=== PATIENT | female | born 1955 | race Hispanic/Latino ===

== ENCOUNTER 2018-10-03 18:01 | Inpatient (IN) | payer MEDICARE ==
[~2018-10-03] VITALS: Ht 154.9 cm; Wt 80.6 kg
[~2018-10-03 18:01] MED LIST changes: -ATIVAN0.5 MG PO; -EFFEXOR XR75 MG PO; -FOLIC ACID1 MG PO; -PYRIDIUM100 MG PO; -RESTORIL15 MG PO; -TYLENOL WITH C1 EACH PO
--- OUTSIDE RECORDS SUMMARY | 2018-10-03 23:38 | XMS REPORT | Clinical Summary ---
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 Name Role Phone Jared Winston MD PCP [...] Gastroesophageal reflux disease without esophagitis 05/03/2018 Refill [facility] Will Burkett MD Moderate episode of recurrent major depressive disorder (Primary Dx); ZANA (generalized anxiety disorder) 05/02/2018 Office Visit Psychiatry 05/02/2018 Kevin Owen III, MD Gastroesophageal reflux disease without esophagitis 03/03/2018 Refill [facility] Sukh Ramirez MD Espinosa, Giselle [...] Comments Vital Sign 105/62 06/14/2018 11:10 AM BIODIESEL PROCESSING TECHNICIAN Blood Pressure 89 06/14/2018 11:10 AM BIODIESEL PROCESSING TECHNICIAN Pulse 37 C (98.6 F) 06/14/2018 11:10 AM BIODIESEL PROCESSING TECHNICIAN Temperature 18 06/14/2018 11:10 AM BIODIESEL PROCESSING TECHNICIAN Respiratory Rate - - Oxygen Saturation - - Inhaled Oxygen Concentration 91.6 kg (202 lb) 06/14/2018 11:10 AM BIODIESEL PROCESSING TECHNICIAN Weight 152.4 cm (5') 06/14/2018 11:10 AM BIODIESEL PROCESSING TECHNICIAN Height 39.45 06/14/2018 11:10 AM BIODIESEL PROCESSING TECHNICIAN Body Mass Index Plan of Treatment Health [...] Preventative health care HORMONE (TSH) 9:18 AM BIODIESEL PROCESSING TECHNICIAN VIT D, 25-HYDROXY Routine 06/15/2018 Preventative health care 9:18 AM BIODIESEL PROCESSING TECHNICIAN VITAMIN B12 Routine 06/15/2018 Preventative health care 9:18 AM BIODIESEL PROCESSING TECHNICIAN Vitamin B12 deficiency FOLIC ACID Routine 06/15/2018 Preventative health care 9:18 AM BIODIESEL PROCESSING TECHNICIAN Vitamin B12 deficiency FERRITIN Routine 06/15/2018 Preventative health care 9:18 AM BIODIESEL PROCESSING TECHNICIAN Vitamin B12 deficiency IRON PROFILE Routine 06/15/2018 Preventative health care 9:18 AM BIODIESEL PROCESSING TECHNICIAN Vitamin B12 deficiency LIVER PROFILE Routine 06/15/2018 Preventative health care 9:18 AM BIODIESEL PROCESSING TECHNICIAN LIPID PROFILE Routine 06/15/2018 Preventative health care 9:18 AM BIODIESEL PROCESSING TECHNICIAN HEMOGLOBIN A1C Routine 06/15/2018 Preventative health care 9:18 AM BIODIESEL PROCESSING TECHNICIAN CBC/DIFF Routine 06/15/2018 Preventative health care 9:18 AM BIODIESEL PROCESSING TECHNICIAN Vitamin B12 deficiency BASIC METABOLIC PANEL Routine 06/15/2018 Preventative health care 9:18 AM BIODIESEL PROCESSING TECHNICIAN URINALYSIS Routine 02/22/2018 History of UTI 12:20 PM BIODIESEL PROCESSING TECHNICIAN URINE CULTURE Routine 02/22/2018 History of UTI 12:19 PM BIODIESEL PROCESSING TECHNICIAN after 10/02/2017 Results * VIT D, 25-HYDROXY (06/15/2018 9:18 AM BIODIESEL PROCESSING TECHNICIAN) Vit D, 27.1 (L) 30 - 100 ng/mL BT DIAGNOSTIC 25-Hydroxy Comment: IMMUNOLOGY Vitamin D deficiency has been defined by the [place] of Medicine and Endocrine Society guideline as a level of serum 25-OH Vitamin D less than 20 ng/mL. The Endocrine Society further defines Vitamin D insufficiency as a level between 21 and 29 ng/mL and sufficiency as a level between 30 and 100 ng/mL. Specimen Performing Organization Address City/State/Zipcode Phone Number [facility] BT DIAGNOSTIC IMMUNOLOGY * HEMOGLOBIN A1C (06/15/2018 9:18 AM BIODIESEL PROCESSING TECHNICIAN) Hemoglobin A1c 5.8 4.3 - 6.1 % BT DIAGNOSTIC IMMUNOLOGY Est Average 119.8 mg/dL BT DIAGNOSTIC Gluc IMMUNOLOGY Specimen Blood Performing Organization Address [facility] Phone Number [facility] BT DIAGNOSTIC IMMUNOLOGY * TSH (06/15/2018 9:18 AM BIODIESEL PROCESSING TECHNICIAN) TSH 2.84 0.57 - 3.74 uIU/mL BT MAIN-STATION 1 Specimen Blood Performing Organization Address [facility] Phone Number [facility] BT MAIN-STATION 1 * FOLIC ACID (06/15/2018 9:18 AM BIODIESEL PROCESSING TECHNICIAN) Folic Acid 7.6 5.9 - 24.8 ng/mL BT MAIN-STATION 1 Specimen Blood Performing Organization Address [facility] Phone Number [facility] BT MAIN-STATION 1 * FERRITIN (06/15/2018 9:18 AM BIODIESEL PROCESSING TECHNICIAN) Ferritin 50.70 11.0 - 306.8 ng/mL BT MAIN-STATION 1 Specimen Blood Performing Organization Address [facility] Phone Number [facility] BT MAIN-STATION 1 * VITAMIN B12 (06/15/2018 9:18 AM BIODIESEL PROCESSING TECHNICIAN) Vitamin B12 212 211 - 911 pg/mL BT MAIN-STATION 1 Specimen Blood Performing Organization Address [facility] Phone Number [facility] BT MAIN-STATION 1 * LIVER PROFILE (06/15/2018 9:18 AM BIODIESEL PROCESSING TECHNICIAN) Protein, Total, 6.3 6.0 - 8.3 g/dL [...] MAIN-STATION 1 Specimen Blood Performing Organization Address [facility] Phone Number [facility] BT MAIN-STATION 1 * LIPID PROFILE (06/15/2018 9:18 AM BIODIESEL PROCESSING TECHNICIAN) Cholesterol 174 mg/dL BT MAIN-STATION Comment: 1 REFERENCE RANGE: Desirable: <200 mg/dL Borderline: 200-240 mg/dL High Risk: >240 mg/dL Triglyceride 89 <150 mg/dL BT MAIN-STATION Comment: 1 REFERENCE RANGE: Normal: <150 mg/dL Borderline High: 150-199 mg/dL High: 200-499 mg/dL Very High: >ye=390 mg/dL HDL 70 mg/dL BT MAIN-STATION Comment: 1 Increased CHD risk: <40 mg/dL Decreased CHD risk: >60 mg/dL LDL 86 mg/dL BT MAIN-STATION Comment: 1 REFERENCE RANGE: Optimal: <100 mg/dL Near Optimal: 100-129 mg/dL Borderline High: 130-159 mg/dL High: 160-189 mg/dL Very High: >bg=377 mg/dL Specimen Blood Performing Organization Address [facility] Phone Number [facility] BT MAIN-STATION 1 * IRON PROFILE (06/15/2018 9:18 AM BIODIESEL PROCESSING TECHNICIAN) Iron 54 50 - 212 ug/dL BT MAIN-STATION 1 TIBC 440 250 - 450 ug/dL BT MAIN-STATION 1 % Iron Sat 12 % BT MAIN-STATION 1 Specimen Blood Performing Organization Address [facility] Phone Number [facility] * CBC/DIFF (06/15/2018 9:18 AM BIODIESEL PROCESSING TECHNICIAN) WBC 6.8 4.5 - 11.0 K/uL BT [...] (H) 0.24 - 0.36 K/uL BT MAIN-STATION eyak) 2 Eos (Absolute) 0.23 0.04 - 0.36 K/uL BT MAIN-STATION 2 Baso (Absolute) 0.04 0.01 - 0.08 K/uL BT MAIN-STATION 2 Immature Grans 0.04 (H) 0.00 - 0.03 K/uL BT MAIN-STATION (Abs) 2 Specimen Blood Performing Organization Address City/[facility]/Zipcode Phone Number [facility] BT MAIN-STATION 2 * BASIC METABOLIC PANEL (06/15/2018 9:18 AM BIODIESEL PROCESSING TECHNICIAN) [facility] CO2 27 21 - 31 mmol/L [...] Am 1 Specimen Blood Performing Organization Address [facility] Phone Number [facility] BT MAIN-STATION 1 * UA CHEMISTRIES (02/22/2018 12:20 PM BIODIESEL PROCESSING TECHNICIAN) Color Yellow BT MAIN-STATION 1 Clarity Clear BT MAIN-STATION 1 Specific 1.025 1.001 - 1.035 BT MAIN-STATION Winter 1 pH 6.0 5 - 8 BT [...] MAIN-STATION 1 Specimen Urine Performing Organization Address City/[facility] Phone Number [facility] BT MAIN-STATION 1 * URINE CULTURE (02/22/2018 12:19 PM BIODIESEL PROCESSING TECHNICIAN) Spec Catheterized urine BT MICROBIOLOGY Description Order Comments None BT MICROBIOLOGY Culture No growth 2 days BT MICROBIOLOGY Report Status Final 02/25/2018 BT MICROBIOLOGY Specimen Urine catheter - Straight catheter Performing Organization Address [facility] Phone Number [facility] BT MICROBIOLOGY after 10/02/2017 Insurance Type Payer Benefit Subscriber ID Effective Phone Address Plan / Dates Group MEDICARE MEDICARE xxxxxxxxxxx 2016- [phone] [address] Present [id number] [place] [address] Advance Directives Date Inactivated Comments Code Status Date Activated 10/19/2012 7:22 PM Full Code 10/18/2012 4:58 AM
[2018-10-04] VITALS (8 sets, daily range): BP systolic 94–129; BP diastolic 50–61
--- NOTE | 2018-10-04 | NUR ---
patient is a new admit that arrived via stretcher. patient needs assistance walking to the bed. patient has swelling to the lower extremities. patient is laying in the bed. bed is in the lowest position and call gleason is within reach.
[2018-10-04] MEDS ORDERED: MORPHINE SULFATE 2 MG/ML SYR 1ML IV PRN (00:30)
[2018-10-04] MEDS ORDERED: SODIUM CHLORIDE FLUSH 10 ML SYR INJ PRN (00:30)
[2018-10-04] MEDS ORDERED: CEFTRIAXONE SOD 1 GM/NS 50 ML 50 ML IV SCH (01:00)
[2018-10-04] MEDS ORDERED: ONDANSETRON HCL INJ 2MG/ML 2ML 2 MG/ML VIAL IV PRN (01:45)
[2018-10-04] MEDS: CIPROFLOXACIN 200 MG/D5W 100ML 100 ML IV SCH ×2 (01:45→12:45)
[2018-10-04] MEDS ORDERED: MORPHINE SULFATE INJ 4 MG/ML INJ 1ML IV PRN (01:53)
[2018-10-04] MEDS ORDERED: SODIUM CHLORIDE 0.9% 250ML 250 ML ONE (03:15)
[2018-10-04 05:27] LABS: BASOPHILS % 0.7 % (0.0-1.0); EOSINOPHILS # (AUTO) 0.1 (0.0-0.4); EOSINOPHILS % 2.4 % (0.0-6.0); HEMATOCRIT 33.4 % (34.2-44.1); HEMOGLOBIN 10.6 g/dL (12.0-16.0); LYMPHOCYTES # (AUTO) 2.5 (1.0-3.2); LYMPHOCYTES % 43.7 % (18.0-39.1); MEAN CORPUSCULAR HEMOGLOBIN 29.3 pg (28-32); MEAN CORPUSCULAR HGB CONC 31.7 g/dL (31-35); MEAN CORPUSCULAR VOLUME 92.3 fL (81-99); MONOCYTES # (AUTO) 0.7 (0.2-0.8); MONOCYTES % 12.2 % (4.4-11.3); NEUTROPHILS # (AUTO) 2.3 (2.1-6.9); NEUTROPHILS % 40.7 % (38.7-80.0); PLATELET COUNT 245 x10e3/uL (140-360); RED BLOOD COUNT 3.62 x10e6/uL (3.6-5.1); RED CELL DISTRIBUTION WIDTH 12.5 % (11.7-14.4)
[2018-10-04 05:48] LABS: ALANINE AMINOTRANSFERASE 28 IU/L (0-55); ALBUMIN 3.3 g/dL (3.5-5.0); ALBUMIN/GLOBULIN RATIO 1.2 (0.8-2.0); ALKALINE PHOSPHATASE 76 IU/L (40-150); ANION GAP 10.5 mmol/L (8-16); BLOOD UREA NITROGEN 20 mg/dL (7-26); BUN/CREATININE RATIO 30 (6-25); CALCIUM 8.7 mg/dL (8.4-10.2); CARBON DIOXIDE 24 mmol/L (22-29); CHLORIDE 109 mmol/L (98-107); CREATININE, SERUM 0.67 mg/dL (0.57-1.11); EST GLOMERULAR FILTRATION RATE > 60 ML/MIN (60-); GLUCOSE 89 mg/dL (74-118); POTASSIUM 3.5 mmol/L (3.5-5.1); SODIUM 140 mmol/L (136-145)
--- NOTE | 2018-10-04 07:06 | NUR ---
report given to morning nurse. patient is resting comfortably in bed. bed is in lowest position and call gleason is within reach.
[2018-10-04] MEDS: FAMOTIDINE 20 MG TAB PO SCH ×2 (09:50→16:29)
[2018-10-04] MEDS ORDERED: ACETAMINOPHEN/CODEINE 300MG - 30MG TAB PO PRN (17:00)
[2018-10-04] MEDS ORDERED: HYDROCODONE/APAP 10MG-325MG TAB PO PRN (17:00)
[2018-10-04] MEDS: PHENAZOPYRIDINE HCL 100 MG TAB PO SCH (17:15)
[2018-10-04] MEDS ORDERED: POTASSIUM CHLORIDE 20 MEQ TAB CR PO NR (18:00)
[2018-10-04] MEDS: KCL 20MEQ/.9 SOD CHL 1,000 ML IV SCH (18:15)
--- NOTE | 2018-10-04 18:24 | NUR ---
tea and spice supervisor notified of STAT venous doppler
[2018-10-04] MEDS ORDERED: POLYETHYLENE GLYCOL 3350 17 GM PACK PO PRN (18:30)
[2018-10-04] MEDS ORDERED: HYDRALAZINE HCL 20 MG/ML VIAL IV PRN (18:30)
--- NOTE | 2018-10-04 19:20 | NUR ---
RECEIVED PATIENT. PATIENT IS AAOX3. RESP EVEN AND UNLABORED. NO ACUTE DISTRESS NOTED. FAMILY AT BED SIDE. CALL LIGHT WITHIN REACH. INSTRUCT TO CALL FOR ASSISTANCE. BED LOW/LOCKED. CONTINUE TO MONITOR CLOSELY
--- NOTE | 2018-10-04 19:50 | NUR ---
VENTILATED RIB FITTER NOTIFIED PATIENT TO NEGATIVE FOR [place]. NOTIFIED WIRE DRAWING MACHINE OPERATOR ADITYA
--- NOTE | 2018-10-04 20:05 | NUR ---
PATIENT IS OFF UNIT FOR XRAY
--- NOTE | 2018-10-04 20:20 | NUR ---
PATIENT IS BACK TO ROOM
[2018-10-04] MEDS: TEMAZEPAM 15 MG CAP PO PRN (20:30)
--- NOTE | 2018-10-04 20:31 | Diagnostic Imaging Report ---
EXAMINATION: CHEST 2 VIEWS INDICATION: ^persistent cough, phlegm, SOB, Asthma, HERMINIA ^Y COMPARISON: None FINDINGS: PA and lateral views TUBES and LINES: None. LUNGS: Lungs are well inflated. No evidence of air trapping. There is no evidence of pneumonia or pulmonary edema. PLEURA: No pleural effusion or pneumothorax. HEART AND MEDIASTINUM: The cardiomediastinal silhouette is unremarkable. BONES AND SOFT TISSUES: Degenerative changes of the spine and shoulders. Sclerotic lesion in the right scapula measures 4 mm and may represent a bone island. Soft tissues are unremarkable. UPPER ABDOMEN: No free air under the diaphragm. IMPRESSION: No acute thoracic abnormality. Signed by: Dr. Quita Brown MD on 10/04/2018 8:28 PM
[2018-10-05] VITALS (10 sets, daily range): BP systolic 103–151; BP diastolic 53–80
[2018-10-05] MEDS: CIPROFLOXACIN 200 MG/D5W 100ML 100 ML IV SCH ×2 (02:03→14:18)
[2018-10-05] MEDS: KCL 20MEQ/.9 SOD CHL 1,000 ML IV SCH ×2 (04:17→14:18)
[2018-10-05 05:35] LABS: BASOPHILS % 0.4 % (0.0-1.0); EOSINOPHILS # (AUTO) 0.2 (0.0-0.4); EOSINOPHILS % 3.9 % (0.0-6.0); HEMATOCRIT 33.5 % (34.2-44.1); HEMOGLOBIN 10.7 g/dL (12.0-16.0); LYMPHOCYTES # (AUTO) 2.4 (1.0-3.2); LYMPHOCYTES % 42.1 % (18.0-39.1); MEAN CORPUSCULAR HEMOGLOBIN 29.4 pg (28-32); MEAN CORPUSCULAR HGB CONC 31.9 g/dL (31-35); MONOCYTES # (AUTO) 0.7 (0.2-0.8); MONOCYTES % 12.2 % (4.4-11.3); NEUTROPHILS # (AUTO) 2.3 (2.1-6.9); PLATELET COUNT 247 x10e3/uL (140-360); RED BLOOD COUNT 3.64 x10e6/uL (3.6-5.1); RED CELL DISTRIBUTION WIDTH 12.4 % (11.7-14.4)
[2018-10-05 05:48] LABS: ANION GAP 7.9 mmol/L (8-16); BLOOD UREA NITROGEN 16 mg/dL (7-26); BUN/CREATININE RATIO 22 (6-25); CALCIUM 9.1 mg/dL (8.4-10.2); CARBON DIOXIDE 25 mmol/L (22-29); CHLORIDE 110 mmol/L (98-107); CHOLESTEROL 144 MD/DL (0-199); CREATININE, SERUM 0.72 mg/dL (0.57-1.11); EST GLOMERULAR FILTRATION RATE > 60 ML/MIN (60-); GLUCOSE 90 mg/dL (74-118); HDL CHOLESTEROL 48 MG/DL (40-60); LDL CHOLESTEROL 69 MG/DL (60-130); MAGNESIUM 2.1 MG/DL (1.3-2.1); PHOSPHORUS 3.6 MG/DL (2.3-4.7); POTASSIUM 3.9 mmol/L (3.5-5.1); SODIUM 139 mmol/L (136-145); TRIGLYCERIDES 133 MG/DL (0-149)
[2018-10-05 06:09] LABS: THYROID STIMULATING HORMONE 0.604 uIU/mL (0.350-4.940)
--- NOTE | 2018-10-05 07:00 | NUR ---
BEDSIDE SHIFT REPORT RECEIVED FROM DEV MILLIGAN. PT DENIES NEEDS AT THIS TIME.
[2018-10-05] MEDS: MULTIVITAMINS/MINERALS TAB PO SCH (08:15)
[2018-10-05] MEDS: PHENAZOPYRIDINE HCL 100 MG TAB PO SCH ×3 (08:15→18:11)
[2018-10-05] MEDS: OXYBUTYNIN CHLORIDE 5 MG TAB PO SCH (08:15)
[2018-10-05] MEDS: CELECOXIB 100 MG CAP PO SCH (08:15)
[2018-10-05] MEDS: FAMOTIDINE 20 MG TAB PO SCH ×2 (08:15→16:48)
[2018-10-05] MEDS: DOCUSATE SODIUM 100 MG CAP PO SCH ×2 (08:15→16:48)
[2018-10-05] MEDS: PREGABALIN 75 MG CAP PO SCH (08:15)
[2018-10-05] MEDS: BUPROPION HCL 150 MG TABCR PO SCH (08:15)
--- NOTE | 2018-10-05 12:35 | NUR ---
Nutrition Intervention Note RD Recommendation(s) for Physician: -Continue current diet as ordered; diet texture per FINE DINING SERVER -The patient meets criteria for MODERATE protein-calorie malnutrition. Plan of Care: RD following, monitoring for tolerance and adequacy Nutrition reason for involvement: MD Consult decreased appetite with weight loss RD Assessment 10/05 - Chart reviewed. 63yo F, who was admitted for pyelonephritis. CXR was normal. HbA1c was normal at 5.5%. Visited pt in the room. Pt reported poor appetite with nausea and vomiting for over a month. Pt stated I just cant keep anything down. PCT recorded 100% meal intake since admission. Pt reported of 30lbs weight loss in a month. Today, pt still complains of nausea but no vomiting episode. Currently on regular diet. FINE DINING SERVER recommended MBS for further evaluation as pt coughing and clearing throat after thin liquids and after cracker trials. Discussed menu options and obtained food preferences. Pt is not interested in any oral nutrition supplements at this time. Awaiting result from MBS. Will continue to monitor and follow. Principal Problems/Diagnoses: Pyelonephritis PMH: anxiety, depression, GERD, vertigo GI: abdomen soft, round, flatus present, LBM 10/04 Skin: No pressure wound noted Labs: (10/05/2018) folate 6.0 L Meds: MVi w/ minerals, Colace, Pepcid, KCl Ht: 61in Wt: 178lb BMI: 33.6kg.m2 IBW: 105lb Malnutrition Evaluation (10/05) The patient meets criteria for MODERATE protein-calorie malnutrition. Energy intake: <75% of estimated energy requirements for >1 month Weight loss: >5% in 1 month (Acute) Fat loss: None Muscle loss: None Supporting Evidence: Fluid accumulation: none Functional Status: no changes Nutrition Prescription (Diet Order): regular diet Estimated Nutritional Needs: Calories: 1056 1200kcal(22-25kcal/kg/d) Weight used: IBW Protein: 72 120g (1.5-2.5g/kg/d) Weight used: IBW Diet Adequacy: Meeting calorie needs, Meeting protein needs, Meeting fluid needs Diet Education Needs Assessment: Diet education not indicated; patient on regular diet. Nutrition Care Level: mod Nutrition Diagnosis: Moderate malnutrition related to inadequate oral intake as evidenced by <75% of estimated energy requirements for >1 month and >5% weigh loss in 1 month (Acute). Goal: Patient will meet 75-100% of estimated needs by follow up Progress: Goal met Interventions: General healthful diet, Recommended Modifications, Skill Development, Collaboration with other providers Monitoring/Evaluation: Total energy intake, Total protein intake, Modified diet, Weight change Signed: Su Mazariegos MS, RD, LD
[2018-10-05] MEDS ORDERED: ONDANSETRON HCL 4 MG ORAL DISINTEGRATING TAB PO PRN (16:45)
[2018-10-05 17:14] LABS: BILIRUBIN,URINE NEGATIVE (NEGATIVE); CLARITY,URINE CLEAR (CLEAR); COLOR,URINE ORANGE (YELLOW); KETONES,URINE NEGATIVE (NEGATIVE); LEUKOCYTE ESTERASE ,URINE NEGATIVE (NEGATIVE); NITRITE,URINE POSITIVE (NEGATIVE); PROTEIN,URINE DIPSTICK TRACE (NEGATIVE); URINE UROBILINOGEN 2 mg/dL (0.2 - 1)
[2018-10-05 17:22] LABS: EPITHELIAL CELLS,URINE RARE /LPF
[2018-10-06] VITALS (9 sets, daily range): BP systolic 94–145; BP diastolic 51–91
[2018-10-06] MEDS: TEMAZEPAM 15 MG CAP PO PRN ×2 (00:15→22:34)
[2018-10-06] MEDS: KCL 20MEQ/.9 SOD CHL 1,000 ML IV SCH ×3 (00:45→20:36)
[2018-10-06] MEDS: CIPROFLOXACIN 200 MG/D5W 100ML 100 ML IV SCH ×2 (01:50→12:53)
[2018-10-06 06:07] LABS: BASOPHILS % 0.5 % (0.0-1.0); EOSINOPHILS # (AUTO) 0.2 (0.0-0.4); EOSINOPHILS % 3.7 % (0.0-6.0); HEMATOCRIT 34.8 % (34.2-44.1); HEMOGLOBIN 11.3 g/dL (12.0-16.0); LYMPHOCYTES # (AUTO) 2.6 (1.0-3.2); LYMPHOCYTES % 42.9 % (18.0-39.1); MEAN CORPUSCULAR HEMOGLOBIN 29.8 pg (28-32); MEAN CORPUSCULAR HGB CONC 32.5 g/dL (31-35); MEAN CORPUSCULAR VOLUME 91.8 fL (81-99); MONOCYTES # (AUTO) 0.6 (0.2-0.8); MONOCYTES % 10.3 % (4.4-11.3); NEUTROPHILS # (AUTO) 2.5 (2.1-6.9); NEUTROPHILS % 42.3 % (38.7-80.0); PLATELET COUNT 258 x10e3/uL (140-360); RED BLOOD COUNT 3.79 x10e6/uL (3.6-5.1); RED CELL DISTRIBUTION WIDTH 12.4 % (11.7-14.4)
[2018-10-06 06:33] LABS: ANION GAP 10.8 mmol/L (8-16); BLOOD UREA NITROGEN 15 mg/dL (7-26); BUN/CREATININE RATIO 23 (6-25); CALCIUM 9.2 mg/dL (8.4-10.2); CARBON DIOXIDE 23 mmol/L (22-29); CHLORIDE 112 mmol/L (98-107); CREATININE, SERUM 0.64 mg/dL (0.57-1.11); EST GLOMERULAR FILTRATION RATE > 60 ML/MIN (60-); GLUCOSE 79 mg/dL (74-118); MAGNESIUM 2.1 MG/DL (1.3-2.1); POTASSIUM 3.8 mmol/L (3.5-5.1); SODIUM 142 mmol/L (136-145)
--- NOTE | 2018-10-06 06:50 | NUR ---
PAGED DR WOOTEN FOR CONSULT.
--- NOTE | 2018-10-06 07:00 | NUR ---
BEDSIDE SHIFT REPORT RECEIVED FROM CONFERENCE SERVICES COORDINATOR RN. PT DENIES NEEDS AT THIS TIME.
--- NOTE | 2018-10-06 07:59 | Diagnostic Imaging Report ---
EXAM: Modified barium swallow with Speech Pathologist INDICATION: ^RO ASPIRATION ^20181005 ^1230 COMPARISON: None available. RADIATION DOSE: Fluoroscopy Time: 0.8 min Dose (Kerma) Area Product: 0.38 Gycm2 Air Kerma (AK) value has been reviewed. It is below the limits set by the Radiation Protocol Committee (RPC) committee. FINDINGS: See impression IMPRESSION: No evidence of penetration or aspiration. Please see speech pathology report for detailed description and recommendations. Signed by: Dr. Hamilton Ortiz M.D. on 10/06/2018 7:55 AM
[2018-10-06] MEDS: PREGABALIN 75 MG CAP PO SCH ×2 (09:00→09:28)
[2018-10-06] MEDS: FAMOTIDINE 20 MG TAB PO SCH ×2 (09:28→17:06)
[2018-10-06] MEDS: CELECOXIB 100 MG CAP PO SCH (09:28)
[2018-10-06] MEDS: PHENAZOPYRIDINE HCL 100 MG TAB PO SCH ×3 (09:28→17:06)
[2018-10-06] MEDS: OXYBUTYNIN CHLORIDE 5 MG TAB PO SCH (09:28)
[2018-10-06] MEDS: FOLIC ACID 1 MG TAB PO SCH (09:28)
[2018-10-06] MEDS: MULTIVITAMINS/MINERALS TAB PO SCH (09:28)
[2018-10-06] MEDS: BUPROPION HCL 150 MG TABCR PO SCH (09:28)
[2018-10-06] MEDS: DOCUSATE SODIUM 100 MG CAP PO SCH ×2 (09:28→17:06)
[2018-10-06] MEDS ORDERED: IOPAMIDOL 370 MG/ML 200 ML INFUS..BTL INJ ONE (10:13)
[2018-10-06] MEDS ORDERED: SODIUM CHLORIDE 0.9% 50ML 50 ML ONE (10:13)
--- NOTE | 2018-10-06 12:28 | NUR ---
Spoke to Natalia with PT. She stated she spoke with PT who worked with pt today. Pt walked 260 ft with supervision today. PT does not think pt will need therapy after discharge. New recommendation is home. Will benefit with rolling walker.
[2018-10-06] MEDS ORDERED: LORAZEPAM 0.5 MG TAB PO PRN (14:30)
[2018-10-06] MEDS: VENLAFAXINE HCL 75 MG CAPCR PO SCH (14:55)
--- NOTE | 2018-10-06 22:09 | Consultation ---
DATE OF CONSULTATION: 10/06/2018 Psychiatric Consultation REASON FOR CONSULTATION: To evaluate the patient's mood. HISTORY OF PRESENT ILLNESS: The patient is a 63-year-old female, admitted to the hospital for pyelonephritis. Psychiatric consultation is called to evaluate the patient's mood. Upon evaluation today, the patient is found to be in the room with her sister. She is alert, awake, and oriented to situation. She agrees for the family members to be present in the room. The patient states that she has been feeling tired lately. She also admits to feeling depressed, but unable to verbalize or specify the reason for her mood. She also admits feeling anxious. She admits to feeling hopeless and helpless. She denies any hallucination or suicidal ideation. She reports feeling poor sleep and poor appetite, but claims her appetite is increasing while she is here. She claims that she has been on many psych medications in the past with some poor response. She reported that she had been introduced to the thought of getting TMS, but she declines at this time. PAST PSYCHIATRIC HISTORY: The patient reported history of depression for many years, but she does not know when. She denies past suicidal attempts. She denies alcohol or drug use. FAMILY HISTORY: Denies. SOCIAL HISTORY: The patient states she lives alone. MENTAL STATUS EXAM: The patient is an elderly female. She is alert, awake, and oriented to situation. However, she states she is feeling lethargic and weak. She denies any suicidal or homicidal ideation at this time. Her mood is depressed with congruent affect. Insight and judgment are fair. Thought process is concrete. No delusion or paranoia elicited. Denies any hallucination. CURRENT MEDICATIONS: 1. Pyridium. 2. Ciprofloxacin. 3. Folic acid. 4. Multivitamin. 5. Docusate sodium. 6. Oxybutynin. 7. Celebrex. 8. Famotidine. 9. Temazepam 30 mg p.o. at bedtime p.r.n. 10. [place]. 11. Pregabalin. 12. Potassium. 13. Ondansetron. 14. Hydralazine. 15. MiraLax. 16. Acetaminophen. 17. Sodium chloride. 18. Wellbutrin XL 100 mg p.o. daily. CURRENT LABORATORY DATA: WBC 6.01, RBC 3.79, hemoglobin 11.3, hematocrit 34.8, platelets 258. Sodium 142, potassium 3.8, chloride 112, CO2 of 23, BUN 15, creatinine 0.64. ASSESSMENT: Major depressive disorder, recurrent, moderate. PLAN: 1. Continue with temazepam 30 mg p.o. at bedtime p.r.n. 2. Discontinue Wellbutrin to minimize medication. 3. Add Effexor XR 75 mg p.o. daily. 4. Supportive therapy. 5. Monitor for mood. 6. Ativan 0.5 mg p.o. q.6 hours p.r.n. for anxiety. Thank you for this consultation. Dictated by Mahogany Whitlock PA-C Len Madsen MD QTV/MODL /[id number]
[2018-10-07] MEDS: CIPROFLOXACIN 200 MG/D5W 100ML 100 ML IV SCH ×2 (01:01→13:23)
[2018-10-07 04:53] VITALS: BP 104/56
[2018-10-07] MEDS: KCL 20MEQ/.9 SOD CHL 1,000 ML IV SCH (05:04)
[2018-10-07 05:21] LABS: BASOPHILS % 0.5 % (0.0-1.0); EOSINOPHILS # (AUTO) 0.2 (0.0-0.4); EOSINOPHILS % 3.4 % (0.0-6.0); HEMATOCRIT 36.4 % (34.2-44.1); HEMOGLOBIN 11.6 g/dL (12.0-16.0); LYMPHOCYTES # (AUTO) 2.5 (1.0-3.2); LYMPHOCYTES % 40.6 % (18.0-39.1); MEAN CORPUSCULAR HEMOGLOBIN 29.2 pg (28-32); MEAN CORPUSCULAR HGB CONC 31.9 g/dL (31-35); MEAN CORPUSCULAR VOLUME 91.7 fL (81-99); MONOCYTES # (AUTO) 0.6 (0.2-0.8); MONOCYTES % 9.1 % (4.4-11.3); NEUTROPHILS # (AUTO) 2.9 (2.1-6.9); NEUTROPHILS % 45.9 % (38.7-80.0); PLATELET COUNT 280 x10e3/uL (140-360); RED BLOOD COUNT 3.97 x10e6/uL (3.6-5.1); RED CELL DISTRIBUTION WIDTH 12.1 % (11.7-14.4)
[2018-10-07 05:28] LABS: ANION GAP 12.8 mmol/L (8-16); BLOOD UREA NITROGEN 17 mg/dL (7-26); BUN/CREATININE RATIO 24 (6-25); CALCIUM 9.7 mg/dL (8.4-10.2); CARBON DIOXIDE 21 mmol/L (22-29); CHLORIDE 109 mmol/L (98-107); EST GLOMERULAR FILTRATION RATE > 60 ML/MIN (60-); GLUCOSE 81 mg/dL (74-118); MAGNESIUM 2.1 MG/DL (1.3-2.1); POTASSIUM 3.8 mmol/L (3.5-5.1); SODIUM 139 mmol/L (136-145)
[2018-10-07] MEDS ORDERED: FOLIC ACID1 MG PO (06:22)
[2018-10-07] MEDS ORDERED: PYRIDIUM100 MG PO (06:22)
[2018-10-07] MEDS ORDERED: TYLENOL WITH C1 EACH PO (06:28)
[2018-10-07] MEDS ORDERED: EFFEXOR XR75 MG PO (06:32)
[2018-10-07] MEDS ORDERED: RESTORIL15 MG PO (06:32)
[2018-10-07] MEDS ORDERED: ATIVAN0.5 MG PO (06:32)
--- NOTE | 2018-10-07 08:23 | NUR ---
Spoke with pt at bedside regarding rolling walker. Pt states she wants to check with her insurance company prior to deciding on whether or not she wants a walker from the hospital. Pt states she was just on the phone with them but will call them back now and let CM know what she decides. IMM letter was discussed and pt was reminded of her Medicare Rights. Pt states she is ready to go home. Signed letter placed in chart. Copy to pt.
[2018-10-07] MEDS: OXYBUTYNIN CHLORIDE 5 MG TAB PO SCH (08:33)
[2018-10-07] MEDS: DOCUSATE SODIUM 100 MG CAP PO SCH (08:33)
[2018-10-07] MEDS: FAMOTIDINE 20 MG TAB PO SCH (08:33)
[2018-10-07] MEDS: PHENAZOPYRIDINE HCL 100 MG TAB PO SCH ×2 (08:33→13:06)
[2018-10-07] MEDS: MULTIVITAMINS/MINERALS TAB PO SCH (08:33)
[2018-10-07] MEDS: CELECOXIB 100 MG CAP PO SCH (08:33)
[2018-10-07] MEDS: PREGABALIN 75 MG CAP PO SCH (08:34)
[2018-10-07] MEDS: VENLAFAXINE HCL 75 MG CAPCR PO SCH (08:34)
[2018-10-07] MEDS: FOLIC ACID 1 MG TAB PO SCH (08:34)
[2018-10-07 08:37] VITALS: BP 128/72
[2018-10-07 09:00] VITALS: BP 128/72
--- NOTE | 2018-10-07 09:15 | NUR ---
Received callback from pt. She stated she spoke with her insurance and was informed she would be responsible for 20% of cost of RW. Pt states that she will have her daughter get one for her. CM discussed need for walker for safety purposes due to recent falls at home. Pt continues to declines RW from hospital at this time.
[2018-10-07 12:09] VITALS: BP 105/59
--- NOTE | 2018-10-07 12:19 | NUR ---
Pt changed her mind regarding rolling walker. Rolling walker was provided to pt. [facility] form turned into PACU.
--- NOTE | 2018-10-07 15:07 | NUR ---
patient discharged home, met daughter in room. given discharge instructions to patient and daughter. Verbalized understanding of d/c instructions.
--- NOTE | 2018-10-07 16:59 | Progress Note ---
DATE: 10/07/2018 SUBJECTIVE: The patient was evaluated, no events noted. The patient in the room with her daughter. She is alert, awake, and oriented to situation. She states that she is feeling fair, less depressed, less anxious. She denies any problems with sleep or appetite. She denies any hallucination. She denies any suicidal ideation. She denies any side effects to medications. ASSESSMENT: Major depressive disorder, recurrent, moderate. PLAN: 1. Continue temazepam p.r.n. 2. Continue Effexor. 3. Continue p.r.n. Ativan. 4. Monitor for mood. 5. Supportive therapy. Dictated by Mahogany Whitlock PA-C Len Madsen MD QTV/MODL /[id number]
--- NOTE | 2018-10-08 03:56 | Discharge Summary ---
ADMISSION DIAGNOSES: Klebsiella pneumoniae urinary tract infection with pyelonephritis, inadequate oral intake with unintentional weight loss of 21 pounds, protein-calorie malnutrition, dysphagia, headache, hypokalemia, persistent cough with asthma and obstructive sleep apnea, anxiety, depression, insomnia, gastroesophageal reflux disease. DISCHARGE DIAGNOSES: Klebsiella pneumoniae urinary tract infection with pyelonephritis, inadequate oral intake with unintentional weight loss of 21 pounds, protein-calorie malnutrition, dysphagia, headache, hypokalemia, persistent cough with asthma and obstructive sleep apnea, anxiety, depression, insomnia, gastroesophageal reflux disease. 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 FAMILY HISTORY: The patient's father has diabetes. PAST SURGICAL HISTORY: Umbilical hernia repair, appendectomy, hysterectomy. HOSPITAL COURSE: A 63-year-old female, states about 1-1/2 months ago, she had difficulty keeping food down because she got nauseous when she was eating and had abdominal pain. On September 17, her legs began to twitch and she had difficulty walking. About 3 weeks ago, she began having right flank pain, but she did not go to the primary care because she did not have the money. She denies dysuria, but has frequency and urgency. On September 26, she finally went to Dr. Gorman's office and was prescribed Cipro, which she took for seven days, but with no relief. On admission, chest x-ray was negative. The patient had a modified barium swallow that was negative for aspiration. The urine culture came back negative. The patient continued to receive Cipro in the hospital. The patient also said she was having problems with her family, so Psych was consulted. Psych ordered to discontinue the Wellbutrin and add Effexor as well as Ativan. I ordered a CT of the abdomen and pelvis, but due to the [facility] [place], the patient could not have a CAT scan. Since the urine culture is negative and the patient is feeling better, she will be discharged home with prescriptions for Tylenol No. 3, folic acid, lorazepam, Pyridium, Restoril, and Effexor. She will follow up with primary care in 1 to 2 weeks. The patient understands discharge instructions and agrees to plan. Physical Therapy assessed her and says it is safe for her to discharge home with a rolling walker. She was given a rolling walker before discharge. Dictated by Yolanda Wilcox, JET MAN MD MIKO Estrella/BLAS /[id number]
== END 2018-10-07 15:03 | disposition home or self-care (01) | DRG 689 ==
LOC: MED/SURG2 23:34
PROVIDERS: ADMIT Internal Medicine; ATTEND Internal Medicine
DX: N10 Acute pyelonephritis (principal); E43 Unspecified severe protein-calorie malnutrition; F33.1 Major depressive disorder, recurrent, moderate; E44.0 Moderate protein-calorie malnutrition; B96.1 Klebsiella pneumoniae [K. pneumoniae] as the cause of diseases classified elsewhere; E86.0 Dehydration; E87.6 Hypokalemia; K21.9 Gastro-esophageal reflux disease without esophagitis; E11.9 Type 2 diabetes mellitus without complications; M50.10 Cervical disc disorder with radiculopathy, unspecified cervical region; R13.10 Dysphagia, unspecified; G89.4 Chronic pain syndrome; G47.33 Obstructive sleep apnea (adult) (pediatric); E78.1 Pure hyperglyceridemia; G47.00 Insomnia, unspecified; Z68.33 Body mass index [BMI] 33.0-33.9, adult; R51 Headache; J45.909 Unspecified asthma, uncomplicated; F41.8 Other specified anxiety disorders; Z79.4 Long term (current) use of insulin; Z88.8 Allergy status to other drugs, medicaments and biological substances; Z91.81 History of falling; I83.811 Varicose veins of right lower extremity with pain; E53.8 Deficiency of other specified B group vitamins; E66.9 Obesity, unspecified
CPT/HCPCS: 36415; 71046; 74230; 80048; 80053; 80061; 81001; 82746; 83036; 83605; 83735; 83880; 84100; 84443; 85025; 87086; 93970; 97139; J2270; J2405; J7050; Q9967

== ENCOUNTER → 2018-10-03 | Emergency (ER) | payer MEDICARE ==
[~2018-10-03] MED LIST: ATIVAN0.5 MG PO; BACLOFEN10 MG PO; BUPROPION HCL100 MG PO; CELEBREX100 MG PO; EFFEXOR XR75 MG PO; FENOFIBRATE145 MG; FOLIC ACID1 MG PO; LYRICA50 MG; MYRBETRIQ50 MG; OMEPRAZOLE40 MG; OXYBUTYNIN CHLOR5 MG PO; PYRIDIUM100 MG PO; RESTORIL15 MG PO; TYLENOL WITH C1 EACH PO
--- OUTSIDE RECORDS SUMMARY | 2018-10-03 22:57 | XMS REPORT | Continuity of Care Document ---
Author Author [facility] Interface Address Unknown Phone Unavailable Problems Problem Status Onset Date Classification Date Reported Comments Source ESOPHAGEAL MOTILITY Active 06/01/2018 [facility] R10.13=EPIGASTRIC PAIN Active 07/23/2015 [facility] M46.96 - UNSPECIFIED INFLAMMATORY SPOND Active 02/13/2015 [facility] [place] Anxiety Resolved Problem 09/17/2018 [facility] [place] Arthritis Resolved Problem 09/17/2018 [facility] [place] Dysphasia Active Problem 09/17/2018 [facility] [place] GERD (<span ID="[id number]">Confirmed</span>) Resolved Problem 09/17/2018 [facility] [place] GERD - Gastro-esophageal reflux disease Active Problem 09/17/2018 [facility] [place] Elevated triglycerides with high cholesterol Resolved Problem 09/17/2018 [facility] [place] Urinary tract infection, recurrent Resolved Problem 09/17/2018 [facility] [place] LUMBAR DDD Active [facility] [place] LUMBAR Active [facility] [place] CHRONIC PAIN SYNDROME Active [facility] [place] DYSPHAGIA, UNSPECIFIED Active [facility] Medications Medication Details Route Status Patient Instructions Ordering Provider Order Date Source celecoxib 200 MG Oral Capsule [Celebrex] 200 mg=1 cap, PO, Daily, # 30 cap, 0 Refill(s) Active 06/16/2018 [facility] buPROPion 300 mg/24 hours (XL) oral tablet, extended release 300 mg=1 tab, PO, Q24H, 0 Refill(s) Active 06/16/2018 [facility] Trazodone Hydrochloride 100 MG Oral Tablet 100 mg=1 tab, PO, PRN, 0 Refill(s) Active 06/15/2018 [facility] omeprazole 40 mg oral delayed release capsule 40 mg=1 cap, PO, Daily, # 30 cap, 0 Refill(s) Active 06/15/2018 [facility] 24 HR mirabegron 50 MG Extended Release Tablet [Myrbetriq] 50 mg=1 tab, PO, Daily, # 30 tab, 0 Refill(s) Active 06/15/2018 [facility] pregabalin 300 MG Oral Capsule [Lyrica] 300 mg=1 cap, PO, Daily, 0 Refill(s) Active 06/15/2018 [facility] 24 HR Bupropion Hydrochloride 150 MG Extended Release Tablet 150 mg=1 tab, PO, Q24H, # 30 tab, 0 Refill(s) No Longer Active 06/15/2018 [facility] LORazepam 0.5 mg oral tablet 0.25 mg=0.5 tab, PO, BID, PRN Anxiety, # 15 tab, 0 Refill(s) Active 06/15/2018 [facility] Fenofibrate 145 MG Oral Tablet 145 mg=1 tab, PO, Daily, # 30 tab, 0 Refill(s) Active 06/15/2018 [facility] Allergies, Adverse Reactions, Alerts Substance Category Reaction Severity Reaction type Status Date Reported Comments Source Phenergan Assertion Drug allergy Active [facility] Immunizations Immunization Date Given Site Status Last Updated Comments Source Results Order Name Results Value Reference Range Date Interpretation Comments Source Sinus paranasal series DX Sinus paranasal series DX EXAM: Sinus paranasal series DX HISTORY: - J01.10 Acute frontal sinusitis, unspecified COMPARISON: 02/28/2018 IMPRESSION: No air-fluid level or radiographically evident significant mucosal thickening of the paranasal sinuses is seen. 05/05/2018 - - Read by: Bandar Barraza MD Dictated Date/time: 05/05/18 14:35 Electronically Signed by: Bandar Barraza MD 05/05/18 14:36 FINAL REPORT SHY Odonnell Breast Mammo Scrn JORGE incl CAD MA Breast Mammo Scrn JORGE incl CAD MA BILATERAL DIGITAL SCREENING MAMMOGRAM WITH CAD: 03/25/2018 CLINICAL: Z12.31 Encounter For Screening Mammogram For Malignant Neoplasm Of Breast/Z12.31 Encounter For Screening Mammogram For Malignant Neoplasm Of Breast. Current study was evaluated with a Computer Aided Detection (CAD) system. COMPARISON:Comparison is made to exams dated: 11/06/2016 mammogram - [facility] and 10/29/2014 mammogram - [facility]. TECHNIQUE: Mammographic views were obtained using digital acquisition. Current study was also evaluated with a Computer Aided Detection (CAD) system. FINDINGS: There are scattered fibroglandular densities in both breasts. There are benign calcifications in both breasts. No significant masses, calcifications, or other findings are seen in either breast. There has been no significant interval change. IMPRESSION: BENIGN RECOMMENDATION:There is no mammographic evidence of malignancy. A 1 year screening mammogram is recommended.(03/26/2019) This exam was interpreted at [id number] for DEANDRE Odonnell, SL 15. Professional services are provided by the [facility]. Raul Doty M.D. cm/penrad:03/25/2018 13:45:45 Fastener Technologist(s): RT Mony(R)(M), [facility] letter sent: BI-RADS 1/2 Mammogram BI-RADS: 2 Benign 03/25/2018 - - Read by: Davin Montelongo MD Dictated Date/time: 03/25/18 13:45 Electronically Signed by: Davin Montelongo MD 03/25/18 13:45 FINAL REPORT DEANDRE BEGUM [facility] Bone Density [employer] MA Bone Density [employer] MA BONE DENSITY ASSESSMENT: 03/25/2018 CLINICAL DATA: Post menopausal. M81.0 Age related osteoporosis. M81.0 Age- Related Osteoporosis Without Current Pathological Fracture/M81.0 Age-Related Osteoporosis Without Current Pathological Fracture COMPARISON: 11/06/2016 Left hip using a Hologic unit from [facility] with reported normal fracture risk, BMD of 0.945g/cm2, and Z-score of 0.80. 11/06/2016 Right hip using a Hologic unit from [facility] with reported normal fracture risk, BMD of 0.956g/cm2, T-score of 0.10, and Z-score of 0.90. 11/06/2016 AP L1-L2 region of spine using a Hologic unit from [facility] with reported medium fracture risk, BMD of 0.805g/cm2, T-score of - 1.60, and Z-score of -0.30. FINDINGS: Bone density evaluation was performed 03/25/2018 on the right femur neck using a Hologic unit. The BMD average for the exam is 0.826 g/cm2. The T-score is - 0.20 and the Z-score is 0.90. This matches the World Health Organization's criteria for normal bone density and places the patient within normal limits of fracture risk. An additional bone density evaluation was performed 03/25/2018 on the left femur neck using a Hologic unit. The BMD average for the exam is 0.855 g/cm2. The T- score is 0.10 and the Z-score is 1.10. This matches the World Health Organization's criteria for normal bone density and places the patient within normal limits of fracture risk. An additional bone density evaluation was performed 03/25/2018 on the right hip using a Hologic unit. The BMD average for the exam is 0.990 g/cm2. The T-score is 0.40 and the Z-score is 1.20. Since the previous similar exam of 11/06/2016, there has been a +0.034 or +3.6% change in the BMD value which represents no significant interval change in bone density. This matches the World Health Organization's criteria for normal bone density and places the patient within normal limits of fracture risk. An additional bone density evaluation was performed 03/25/2018 on the left hip using a Hologic unit. The BMD average for the exam is 0.909 g/cm2. The T-score is -0.30 and the Z-score is 0.60. Since the previous similar exam of 11/06/2016, there has been a -0.036 or -3.8% change in the BMD value which represents no significant interval change in bone density. This matches the World Health Organization's criteria for normal bone density and places the patient within normal limits of fracture risk. An additional bone density evaluation was performed 03/25/2018 on the AP L1-L2 region of spine using a Hologic unit. The BMD average for the exam is 0.852 g/cm2. The T-score is -1.20 and the Z-score is 0.20. Since the previous similar exam of 11/06/2016, there has been a +0.047 or +5.8% change in the BMD value which represents no significant interval change in bone density. This matches the World Health Organization's criteria for osteopenia and places the patient at a medium risk for fracture. IMPRESSION: OSTEOPENIA Patient is at medium risk for fracture. This exam was interpreted at [id number] for DEANDRE Odonnell, SL 15. Raul Doty M.D. cm/penrad:03/25/2018 13:52:02 Fastener Technologist(s): Ivonne GONZALEZ(Armand)(Sonu), [facility] 03/25/2018 - - Read by: Davin Montelongo MD Dictated Date/time: 03/25/18 13:52 Electronically Signed by: Davin Montelongo MD 03/25/18 13:52 FINAL REPORT DEANDRE EMMALucy [facility] Spine cervical wo contrast MRI Spine cervical wo contrast MRI Spine cervical wo contrast MRI , 03/18/2018 7:59 AM TECH WRITER. CLINICAL INDICATION: 63 years Female M50.30 Other cervical disc degeneration, unspecified cervical region - M50.30 Other cervical disc degeneration, unspecified cervical region . Comparison: None available. TECHNIQUE: Sagittal T1 and T2 weighted images were followed by axial T2-weighted views of the cervical spine without IV contrast. FINDINGS: The cervical cord is normal in size and signal intensity. There is no syrinx. The cerebellar tonsils are normal in position above the level of the foramen magnum. Slight T2 hyperintensity of the right C4-5 facets probably due to type I (fibrovascular/edematous changes without additional signs of infection or trauma. There is straightening of cervical spine curvature, with grade 1 C4-5 anterior listhesis of 1 to 2 mm. The vertebrae are otherwise normal in shape, signal intensity and alignment. The intervertebral discs are diffusely desiccated. The prevertebral soft tissues are normal. Craniocervical junction and c1-c2: No canal or foraminal stenosis C2-C3: Disc height maintained. 2 mm disc bulge and mild facet hypertrophy resulting in mild left neural foraminal narrowing. No focal disc herniation or significant canal stenosis. C3-C4: Disc height maintained. Minimal disc bulge/disc osteophyte complexes with mild left greater than right uncovertebral facet hypertrophy. This results in [id number] left neural foraminal narrowing with minimal deformity the left C4 nerve root. No focal disc herniation or significant canal stenosis. C4-C5: Mild disc height loss. 2 mm disc bulge/disc osteophyte complex is exaggerated by the anterolisthesis with mild uncovertebral and facet hypertrophy. This results and [id number] left and mild right neural foraminal narrowing with deformity of the left C5 nerve root. No focal disc herniation or significant canal stenosis. C5-C6: Mild disc height loss. Uncovertebral hypertrophy/disc osteophyte complex measuring up to 5 mm in the right foramen, so that a disc herniation cannot be excluded. Mild left greater than right facet hypertrophy. This results in severe right and mild left neural foraminal narrowing slight compression of the right C6 nerve root. Minimal canal stenosis. C6-C7: Mild disc height loss. Disc bulge/diffuse disc osteophyte complexes measuring up to 3 mm with slight midline annular fissuring possibly due to wide- based subligamentous disc protrusion, moderate right greater than left uncovertebral mild facet hypertrophy. This results in severe right and mild left neural foraminal narrowing slight compression of the right C7 nerve root. Minimal canal stenosis. C7-T1: There is preservation of the disc height, with no bulging, herniation, spinal stenosis, or neural foraminal stenosis IMPRESSION: 1. Straightening of cervical spine curvature with minimal grade 1 C4-5 anterior listhesis. Right C4-5 facet synovitis without additional signs of infection or trauma. If there is clinical concern for instability, consider flexion- extension views. 2. Disc osteophyte complexes with possible disc herniations at C5-6 and C6-7 where there is minimal canal stenosis. 3. Multilevel foraminal narrowing including slight compression of the right C6 and C7 nerve roots with slight deformity of the left C4 and C5 nerve roots. 03/18/2018 - - Read by: Chay Epstein MD Dictated Date/time: 03/18/18 08:52 Electronically Signed by: Chay Epstein MD 03/18/18 09:14 FINAL REPORT SHY Odonnell Bone Density DXA [employer] MA Bone Density DXA [employer] MA - Bone Density [employer] MA BONE DENSITY EVALUATION: 11/06/2016 CLINICAL DATA: Post menopausal. FINDINGS: Bone density evaluation was performed 11/06/2016 on the AP L1-L2 region of spine using a [employer] unit. The BMD average for the exam is 0.805 g/cm2. The T-score is -1.60 and the Z-score is -0.30. This matches the World Health Organization's criteria for osteopenia and places the patient at a medium risk for fracture. An additional bone density evaluation was performed 11/06/2016 on the right femur neck using a Hologic unit. The BMD average for the exam is 0.818 g/cm2. The T-score is -0.30 and the Z-score is 0.80. This matches the World Health Organization's criteria for normal bone density and places the patient within normal limits of fracture risk. An additional bone density evaluation was performed 11/06/2016 on the right hip using a Hologic unit. The BMD average for the exam is 0.956 g/cm2. The T-score is 0.10 and the Z-score is 0.90. This matches the World Health Organization's criteria for normal bone density and places the patient within normal limits of fracture risk. An additional bone density evaluation was performed 11/06/2016 on the left femur neck using a Hologic unit. The BMD average for the exam is 0.801 g/cm2. The T- score is -0.40 and the Z-score is 0.60. This matches the World Health Organization's criteria for normal bone density and places the patient within normal limits of fracture risk. An additional bone density evaluation was performed 11/06/2016 on the left hip using a Hologic unit. The BMD average for the exam is 0.945 g/cm2. The Z-score is 0.80. This matches the World Health Organization's criteria for normal bone density and places the patient within normal limits of fracture risk. IMPRESSION: OSTEOPENIA Patient is at medium risk for fracture. Professional services are provided by the [facility]. This exam was dictated and interpreted by [id number] for FRANKLIN Flynn. Raul Doty M.D. cm/penrad:11/06/2016 16:01:31 Fastener Technologist: Kristin GONZALEZ(Armand)(Sonu), [facility] 11/06/2016 - - Read by: Davin Montelongo MD Dictated Date/time: 11/06/16 16:01 Electronically Signed by: Davin Montelongo MD 11/06/16 16:01 FINAL REPORT SHY Odonnell Breast Mammo Scrn JORGE incl CAD MA Breast Mammo Scrn JORGE incl CAD MA - BREAST MAMMO SCRN JORGE INCL CAD MA BILATERAL DIGITAL SCREENING MAMMOGRAM WITH CAD: 11/06/2016 CLINICAL: Encounter For Screening Mammogram For Malignant Neoplasm Of Breast/Z12.31. Current study was evaluated with a Computer Aided Detection (CAD) system. Comparison is made to exams dated: 10/29/2014 mammogram - [facility] and 04/29/2011 mammogram - [facility]. There are scattered fibroglandular densities in both breasts. No significant masses, calcifications, or other findings are seen in either breast. There has been no significant interval change. IMPRESSION: NEGATIVE There is no mammographic evidence of malignancy. A 1 year screening mammogram is recommended. Professional services are provided by the [facility]. Francoise Mendoza M.D. th/penrad:11/06/2016 10:35:15 Fastener Technologist: Ivonne HINES)(Sonu), [facility] This exam was dictated and interpreted by [id number] at [facility]. letter sent: Normal exam Mammogram BI-RADS: 1 Negative 11/06/2016 - - Read by: Francoise Mendoza MD Dictated Date/time: 11/06/16 10:35 Electronically Signed by: Francoise Mendoza MD 11/06/16 10:35 FINAL REPORT DEANDRE Odonnell Stomach emptying NM Stomach emptying NM GASTRIC EMPTYING SCAN: HISTORY: Gastritis with gastric bezoar. TECHNIQUE: The patient ingested eggs laced with 1 mCi of technetium 99m sulfur colloid. Anterior planar imaging over the stomach was done up to 4 hours. Quantitative values and time/activity curves were generated. FINDINGS: The T-1/2 is 202 minutes (normal less than 90 minutes). There is - 0.6% emptying at 30 minutes, -1.9% emptying at 60 minutes, -2.9% emptying at 90 minutes, 9% emptying at 2 hours, 31% emptying at 3 hours and 35% emptying at 4 hours (times and percentages are approximated). The time/activity curve shows no emptying over the first 1.5 hours with subsequent shallow linear descent. IMPRESSION: Delayed gastric emptying. [id number] 07/26/2015 - - Read by: Hamilton Hebert MD Dictated Date/time: 07/26/15 15:12 Electronically Signed by: Hamilton Hebert MD 07/26/15 15:19 FINAL REPORT [facility] lumbar wo contrast MRI Spine lumbar wo contrast MRI EXAM: MRI LUMBAR SPINE WITHOUT CONTRAST DATE: Mar 01, 2015 09:41:21 AM . CLINICAL INDICATION: inflammatory spinal arthropathy, low-back pain radiating to right leg with muscle spasm. TECHNIQUE: Multiplanar, multisequence MRI lumbar spine without IV contrast COMPARISON: Unavailable FINDINGS: The lumbar vertebral bodies have normal height, shape, and alignment. There is no worrisome marrow signal abnormality. The conus terminates normally at L1-L2. The paravertebral soft tissues are within normal limits. Disc spaces, spinal canal, and neural foramina: T12-L1. Intervertebral disc height and signal are maintained. There is a small diffuse disc bulge. Posterior elements are normal. There is no stenosis. L1-L2. Mild loss of vertebral disc height and signal with small diffuse disc bulge. Posterior elements are normal. There is no stenosis. L2-L3. Intervertebral disc height and signal are maintained. Posterior elements are normal. There is no stenosis. L3-L4. Mild loss of intervertebral disc height and signal with small diffuse disc bulge. Mild facet enlargement. Center canal measures 11 mm. Lateral recesses and neural foramina are patent. L4-L5. Severe facet hypertrophy with ligamentous redundancy. Loss of intervertebral disc signal with small diffuse disc bulge/pseudobulge. Central canal is narrowed to 6 mm without cauda equina crowding. Lateral recesses are narrowed asymmetric to the left with mass effect on the left descending L5 nerve root. There is moderate stenosis of the bilateral neural foramina with disc and facet osteophytes encroaching upon, but not compressing the L4 nerve roots. L5-S1. [<Intervertebral disc height and signal are maintained. There is left greater than right facet hypertrophy. Central canal lateral recesses are patent. There is mild stenosis of left neural foramen with facet osteophytes encroaching upon, but not contacting the left L5 nerve root. IMPRESSION: 1. Mild to moderate L4-L5 central canal stenosis without cauda equina mass effect. There is associated left lateral recess stenosis with mass effect on the L5 nerve root. 2. Moderate bilateral L4-L5 neural foramen stenosis without nerve root compression 3. L4-L5 and L5-S1 facet arthropathy with active inflammatory changes 03/01/2015 - - Read by: Kolby Gracia MD Dictated Date/time: 03/01/15 11:32 Electronically Signed by: Kolby Gracia MD 03/01/15 14:05 FINAL REPORT DEANDRE Odonnell Knee 1-2 Views unilateral DX Knee 1-2 Views unilateral DX RIGHT KNEE SERIES CLINICAL HISTORY: Knee pain. COMPARISON IMAGING: None. FINDINGS: 2 views of the right knee are submitted for interpretation. Joint space appears preserved. There is no fracture, dislocation, obvious joint effusion or suspicious radiopaque foreign body. Soft tissues are unremarkable. IMPRESSION: No significant abnormality. 11/30/2014 - - Read by: Edward Willingham MD Dictated Date/time: 11/30/14 16:35 Electronically Signed by: Edward Willingham MD 11/30/14 16:35 FINAL REPORT DEANDRE Odonnell Digital Mammo Screen Jorge MA [place] Digital Mammo Screen Jorge MA [place] - DIGITAL MAMMO SCREEN JORGE MA [place] BILATERAL DIGITAL SCREENING MAMMOGRAM 3D/2D WITH CAD: 10/29/2014 CLINICAL: Routine. 2D digital mammographic images and 3D digital tomosynthesis images were obtained in the CC and MLO projections. Current study was evaluated with a Computer Aided Detection (CAD) system. Comparison is made to exam dated: 04/29/2011 mammogram - [facility]. There are scattered fibroglandular densities in both breasts. There are benign vascular calcifications and calcifications in both breasts. There also is a benign density in the right breast. No significant masses, calcifications, or other findings are seen in either breast. There has been no significant interval change. IMPRESSION: BENIGN There is no mammographic evidence of malignancy. A 1 year screening mammogram is recommended. Rachel jain/penjess:11/07/2014 15:29:59 Fastener Technologist: Terri Odell [facility] This exam was dictated and interpreted by [id number] for [facility]. letter sent: Normal exam Mammogram BI-RADS: 2 Benign 10/29/2014 - - Read by: Rachel Brown MD Dictated Date/time: 11/07/14 15:29 Electronically Signed by: Rachel Brown MD 11/07/14 15:29 FINAL REPORT [facility] Vital Signs Vital Sign Value Date Comments Source Respitory Rate 18 06/16/2018 [facility] Systolic (mm Hg) 113 06/16/2018 [facility] Diastolic (mm Hg) 73 06/16/2018 [facility] Heart Rate 73 06/16/2018 [facility] Temperature Oral (F) 98.3 F 06/16/2018 [facility] Height 154.94 cm 06/15/2018 [facility] BMI Calculated 37.87 06/15/2018 [facility] Weight 90.909 06/15/2018 [facility] Encounters Location Location Details Encounter Type Encounter Number Reason For Visit Attending Provider ADM Date DC Date Status Source [facility] - [place] [facility] [id number] Aden Gorman 05/01/2014 05/02/2014 [facility] [place] [facility] [place] [facility] [id number] Aden Gorman 05/04/2014 05/05/2014 [facility] [place] [facility] Outpatient Imaging [place] [facility] [id number] Loi Galeano 10/29/2014 10/30/2014 [facility] [place] [facility] - [place] [facility] [id number] Aden Gorman 11/30/2014 12/01/2014 [facility] [place] [facility] [place] [facility] [id number] Pedro Luis Orozco 02/20/2015 03/22/2015 [facility] [place] [facility] [place] [facility] [id number] Pedro Luis Orozco 03/01/2015 03/02/2015 [facility] [place] [facility] [place] [facility] [id number] Jean Nielsen 06/25/2015 07/25/2015 [facility] [place] [facility] [place] [facility] [id number] Jean Nielsen 07/30/2015 08/29/2015 [facility] [place] [facility] - [place] [facility] [id number] Aden Gorman 11/06/2016 11/07/2016 [facility] [place] [facility] - [place] [facility] [id number] Pedro Luis Orozco 02/28/2018 02/28/2018 [facility] [place] [facility] Bedded Outpatient [id number] Davonte Sarah 06/16/2018 06/16/2018 [facility] Procedures Procedure Code Date Perfomer Comments Source Esophagogastroduodenoscopy<sup>1</sup> [id number] 05/11/2018 [facility] Esophagogastroduodenoscopy<sup>1</sup> [id number] 05/11/2018 gastritis [facility] [place] Esophagogastroduodenoscopy<sup>2</sup> [id number] 01/06/2017 gastritis [facility] Esophagogastroduodenoscopy<sup>2</sup> [id number] 01/06/2017 gastritis [facility] [place] Esophagogastroduodenoscopy<sup>3</sup> [id number] 07/23/2015 gastritis [facility] Esophagogastroduodenoscopy<sup>3</sup> [id number] 07/23/2015 gastritis [facility] [place] Colonoscopy [id number] 01/24/2014 [facility] Colonoscopy [id number] 01/24/2014 [facility] [place] Appendectomy [id number] 04/19/2012 [facility] Appendectomy [id number] 04/19/2012 [facility] [place] Hernia repair [id number] 04/19/2009 [facility] Hernia repair [id number] 04/19/2009 [facility] [place]
--- OUTSIDE RECORDS SUMMARY | 2018-10-03 22:57 | XMS REPORT | Summary of Care ---
Author Author [facility] Outpatient Imaging [facility] Outpatient [facility] [place] Address Unknown Phone Unavailable Encounter HQ Encntr_alias(FIN) [id number] Date(s): 10/29/14 - 10/29/14 [facility] Outpatient Imaging [address] [phone] Discharge Disposition: Home Attending Physician: Loi Galeano MD Vital Signs No data available for this section Problem List No data available for this section Allergies, Adverse Reactions, Alerts Substance Reaction Severity Status Phenergan Active Medications No data available for this section Results No data available for this section Immunizations No data available for this section Procedures No data available for this section Social History No data available for this section Assessment and Plan No data available for this section
--- OUTSIDE RECORDS SUMMARY | 2018-10-03 22:57 | XMS REPORT | Clinical Summary ---
Author Author [facility] Organization [facility] Address Unknown Phone Unavailable Care Team Providers Care Component Assembler Name Role Phone Jared Winston MD PCP Allergies No Known Allergies Medications End Date Status Medication Sig Dispensed Refills Start Date Active estradiol (ESTRACE) 0.01 Insert 1 g 42.5 g 1 % (0.1 mg/gram) vaginal vaginally 3 3 creamIndications: times weekly. Postmenopausal atrophic vaginitis Active Cholecalciferol, Vitamin Take 2,000 0 D3, (VITAMIN D-3) 1,000 Units by unit Chew mouth. Active vitamin C-biotin 50 mg Take by 0 -1,250 mcg Chew mouth. Active celecoxib (CELEBREX) 200 Take 1 30 capsule 3 mg capsuleIndications: capsule by 7 Vitamin D deficiency, mouth daily. Pain in joint, multiple sites Active pregabalin (LYRICA) 100 Take 100 mg 0 mg capsule by mouth. Active meclizine (ANTIVERT) 25 Take 0.5 30 tablet 0 mg TabIndications: tablets by 7 Dizziness and giddiness mouth 3 times daily. Active metoclopramide (REGLAN) 0 10 mg tablet 7 Active ibuprofen (MOTRIN) 600 mg Take 1 tablet 16 tablet 0 tabletIndications: by mouth 7 Pulpitis every 8 hours as needed for Pain. Active Tizanidine 2 mg capsule Take 2 mg by 0 mouth 2 times 8 daily as needed. Active Diclofenac Sodium 1 % Gel NANCY 2 TO 4 0 GRAMS AA 8 SPARINGLY QID PRN P UTD Active lidocaine 5 % Oint NANCY EXT AA 0 TID PRN P FOR 8 30 DAYS Active oxybutynin (DITROPAN XL) TAKE ONE 30 tablet 0 15 mg extended release TABLET BY 8 tabletIndications: MOUTH DAILY Overactive bladder Active fenofibrate TAKE 1 TABLET 90 tablet 0 nanocrystallized (TRICOR) BY MOUTH 8 145 mg tabletIndications: EVERY DAY Hyperlipidemia, unspecified hyperlipidemia type Active buPROPion (WELLBUTRIN XL) Take 1 tablet 90 tablet 1 300 mg extended release by mouth 9 tabletIndications: ZANA every (generalized anxiety morning. disorder), Moderate episode of recurrent major depressive disorder Active escitalopram oxalate Take 1 tablet 90 tablet 1 (LEXAPRO) 20 mg by mouth 9 tabletIndications: ZANA daily. (generalized anxiety disorder), Moderate episode of recurrent major depressive disorder Active omeprazole (PRILOSEC) 20 TAKE 1 90 capsule 0 mg delayed release CAPSULE BY 9 capsuleIndications: MOUTH DAILY Gastroesophageal reflux disease without esophagitis 02/07/2018 Discontinued diazePAM (VALIUM) 5 mg May take 1 2 tablet 0 tabletIndications: tablet 30-40 7 Claustrophobia minutes prior to MRI procedure; if need, she may take 1 additional tablet right before procedure.. 03/07/2018 Discontinued Omeprazole 40 mg capsule 0 7 11/15/2017 Discontinued buPROPion (WELLBUTRIN XL) Take 1 tablet 90 tablet 1 150 mg extended release by mouth 8 tabletIndications: every morning Moderate episode of for recurrent major depression. depressive disorder 11/15/2017 Discontinued escitalopram oxalate Take 1 tablet 90 tablet 1 (LEXAPRO) 20 mg by mouth 8 tabletIndications: ZANA daily. (generalized anxiety disorder), Moderate episode of recurrent major depressive disorder 11/15/2017 Discontinued buPROPion (WELLBUTRIN XL) Take 1 tablet 90 tablet 1 300 mg extended release by mouth 8 tabletIndications: ZANA every (generalized anxiety morning. disorder), Moderate episode of recurrent major depressive disorder 02/07/2018 Discontinued escitalopram oxalate Take 1 tablet 90 tablet 1 (LEXAPRO) 20 mg by mouth 8 tabletIndications: ZANA daily. (generalized anxiety disorder), Moderate episode of recurrent major depressive disorder 02/07/2018 Discontinued buPROPion (WELLBUTRIN XL) Take 1 tablet 90 tablet 1 300 mg extended release by mouth 8 tabletIndications: ZANA every (generalized anxiety morning. disorder), Moderate episode of recurrent major depressive disorder 02/07/2018 Discontinued buPROPion (WELLBUTRIN XL) TAKE 1 TABLET 90 tablet 0 150 mg extended release BY MOUTH 8 tabletIndications: EVERY MORNING Current moderate episode FOR of major depressive DEPRESSION disorder without prior episode 05/02/2018 Discontinued escitalopram oxalate Take 1 tablet 90 tablet 1 (LEXAPRO) 20 mg by mouth 8 tabletIndications: ZANA daily. (generalized anxiety disorder), Moderate episode of recurrent major depressive disorder 05/02/2018 Discontinued buPROPion (WELLBUTRIN XL) Take 1 tablet 90 tablet 1 300 mg extended release by mouth 8 tabletIndications: ZANA every (generalized anxiety morning. disorder), Moderate episode of recurrent major depressive disorder 05/03/2018 Discontinued omeprazole (PRILOSEC) 20 TAKE ONE 90 capsule 0 mg delayed release CAPSULE BY 8 capsuleIndications: MOUTH DAILY Gastroesophageal reflux disease without esophagitis 08/17/2018 Discontinued omeprazole (PRILOSEC) 20 TAKE ONE 90 capsule 0 mg delayed release CAPSULE BY 9 capsuleIndications: MOUTH DAILY Gastroesophageal reflux disease without esophagitis Status Hospital, Clinic, or Ordered Dose Route Frequency Start End Date Other Facility Date Administered Medication Ended cyanocobalamin (VITAMIN 1000 mcg IM EVERY 30 DAYS 08/06/19 B-12) injection 1,000 18 8 mcgIndications: Vitamin B 12 deficiency Active Problems Problem Noted Date Mixed urge and stress incontinence 08/05/2017 Vitamin B 12 deficiency 08/05/2017 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 07/16/2017 Back pain 10/27/2013 Vitamin D deficiency 06/02/2013 Impaired glucose metabolism 06/02/2013 Varicose veins 04/21/2013 Abdominal pain, other specified site- had appendectomy; adhesions from 10/18/2012 prev C.S GERD mod reflux- per UGI- 05/2012; small sliding hernia 06/07/2012 Hiatal hernia small 06/07/2012 Hyperlipidemia 03/25/2012 Obesity 03/25/2012 H/O: hysterectomy 03/25/[address] of the abdomen- fatty infiltration of pancreas 03/25/2012 Resolved Problems Problem Noted Date Resolved Date PPD negative 06/02/2013 06/09/2018 Encounters Care Team Description Date Type Specialty Su Collier NP McGregor, Julianne MDD (major depressive disorder), severe (Primary Dx); ZANA (generalized anxiety disorder) 09/01/2018 Office Visit Psychology 09/01/2018 Kevin Owen III, MD Gastroesophageal reflux disease without esophagitis 08/17/2018 Refill Family Practice Su Collier NP Preventative health care (Primary Dx); Flu vaccine need; Vitamin B12 deficiency 06/14/2018 Office Visit Family Practice 06/14/2018 Kevin Owen III, MD Gastroesophageal reflux disease without esophagitis 05/03/2018 Refill [facility] Will Burkett MD Moderate episode of recurrent major depressive disorder (Primary Dx); ZANA (generalized anxiety disorder) 05/02/2018 Office Visit Psychiatry 05/02/2018 Kevin Owen III, MD Gastroesophageal reflux disease without esophagitis 03/03/2018 Refill [facility] Sukh Ramirez MD Espinosa, Giselle PA History of UTI (Primary Dx); Vaginal atrophy; Mixed incontinence 02/22/2018 Office Visit Urology Will Burkett MD ZANA (generalized anxiety disorder); Moderate episode of recurrent major depressive disorder 02/07/2018 Office Visit Psychiatry Will Burkett MD Current moderate episode of major depressive disorder without prior episode (Primary Dx) 12/27/2017 Refill Psychiatry Will Burkett MD Moderate episode of recurrent major depressive disorder (Primary Dx); ZANA (generalized anxiety disorder) 11/15/2017 Office Visit Psychiatry Lauren Callahan MDD (major depressive disorder), severe (Primary Dx); ZANA (generalized anxiety disorder) 10/05/2017 Office Visit Psychology Su Collier NP Bichanga, Karla Yaritza, LVN Vitamin B 12 deficiency (Primary Dx) 10/04/2017 Nurse Only after 10/02/2017 Immunizations Name Administration Dates Next Due Lidocaine 1% 5ml Inj 09/14/2012 Ceftriazone 500mg 09/14/2012 Injection Influenza Vaccine 02/21/2016, 04/29/2011 Influenza, 06/14/2018 (Deferred: Vaccine Unavailable) Vaccine<FLUCELVAX>(Multi- Dose) Tdap Tetanus, diphtheria, 06/02/2013 acellular pertussis Vaccine Family History Medical History Relation Name Comments Diabetes Brother Hypertension Brother Seizures Brother Diabetes Father Heart Father Arthritis Mother Cancer Sister uterus Hypothyroid Sister Relation Name Status Comments Brother Alive 7 Brother Brother Brother Daughter Alive Father triple bypass (Age 81) Maternal Grandfather Maternal Grandmother Mother Alive Paternal Grandfather Paternal Grandmother Sister Alive 6 Sister Sister Son Alive Social History Date Tobacco Use Types Packs/Day Years Used Never Smoker Smokeless Tobacco: Never Used Tobacco Cessation: Counseling Given: No Drinks/Week oz/Week Comments Alcohol Use No Food Insecurity Answer Date Recorded Within the past 12 months, you worried that your Never true 05/02/2018 food would run out before you got money to buy more. Within the past 12 months, the food you bought Never true 05/02/2018 just didn't last and you didn't have money to get more. Sex Assigned at Date Recorded Not on file Industry Job Start Date Occupation Not on file Not on file Not on file Travel End Travel History Travel Start No recent travel history available. Last Filed Vital Signs Reading Time Taken Comments Vital Sign 105/62 06/14/2018 11:10 AM [employer] Blood Pressure 89 06/14/2018 11:10 AM [employer] Pulse 37 C (98.6 F) 06/14/2018 11:10 AM [employer] Temperature 18 06/14/2018 11:10 AM [employer] Respiratory Rate - - Oxygen Saturation - - Inhaled Oxygen Concentration 91.6 kg (202 lb) 06/14/2018 11:10 AM [employer] Weight 152.4 cm (5') 06/14/2018 11:10 AM [employer] Height 39.45 06/14/2018 11:10 AM [employer] Body Mass Index Plan of Treatment Health Maintenance Due Date Last Done Comments Colonoscopy 3yr 10/26/2018 10/27/2015 (Previously completed - External) Breast Cancer Scrn 05/02/2019 05/02/2018 (Previously completed - (Yearly) External), 02/12/2017, 12/31/2015, Additional history exists Goals Goal Patient Associated Recent Progress Patient-Stat Author Goal Type Problems ed? Reduce pain Lifestyle No Shreyas Russ Feel more energetic Lifestyle No Shreyas Russ Procedures Comments Procedure Name Priority Date/Time Associated Diagnosis THYROID STIMULATING Routine 06/15/2018 Preventative health care HORMONE (TSH) 9:18 AM [employer] VIT D, 25-HYDROXY Routine 06/15/2018 Preventative health care 9:18 AM [employer] VITAMIN B12 Routine 06/15/2018 Preventative health care 9:18 AM [employer] Vitamin B12 deficiency FOLIC ACID Routine 06/15/2018 Preventative health care 9:18 AM [employer] Vitamin B12 deficiency FERRITIN Routine 06/15/2018 Preventative health care 9:18 AM [employer] Vitamin B12 deficiency IRON PROFILE Routine 06/15/2018 Preventative health care 9:18 AM [employer] Vitamin B12 deficiency LIVER PROFILE Routine 06/15/2018 Preventative health care 9:18 AM [employer] LIPID PROFILE Routine 06/15/2018 Preventative health care 9:18 AM [employer] HEMOGLOBIN A1C Routine 06/15/2018 Preventative health care 9:18 AM [employer] CBC/DIFF Routine 06/15/2018 Preventative health care 9:18 AM [employer] Vitamin B12 deficiency BASIC METABOLIC PANEL Routine 06/15/2018 Preventative health care 9:18 AM [employer] URINALYSIS Routine 02/22/2018 History of UTI 12:20 PM [employer] URINE CULTURE Routine 02/22/2018 History of UTI 12:19 PM [employer] after 10/02/2017 Results * VIT D, 25-HYDROXY (06/15/2018 9:18 AM [employer]ER[employer]S DETECTIVE) Vit D, 27.1 (L) 30 - 100 ng/mL BT DIAGNOSTIC 25-Hydroxy Comment: IMMUNOLOGY Vitamin D deficiency has been defined by the [place] [employer] and Endocrine Society guideline as a level of serum 25-OH Vitamin D less than 20 ng/mL. The Endocrine Society further defines Vitamin D insufficiency as a level between 21 and 29 ng/mL and sufficiency as a level between 30 and 100 ng/mL. Specimen Performing Organization Address City/State/Zipcode Phone Number [facility] BT DIAGNOSTIC IMMUNOLOGY * HEMOGLOBIN A1C (06/15/2018 9:18 AM [employer]ER[employer]IVE) Hemoglobin A1c 5.8 4.3 - 6.1 % BT DIAGNOSTIC IMMUNOLOGY Est Average 119.8 mg/dL BT DIAGNOSTIC Gluc IMMUNOLOGY Specimen Blood Performing Organization Address [facility] Phone Number [facility] BT DIAGNOSTIC IMMUNOLOGY * TSH (06/15/2018 9:18 AM [employer]ERIFF[employer] DETECTIVE) TSH 2.84 0.57 - 3.74 uIU/mL BT MAIN-STATION 1 Specimen Blood Performing Organization Address [facility] Phone Number [facility] BT MAIN-STATION 1 * FOLIC ACID (06/15/2018 9:18 AM [employer]ERIFFS DETECTIVE) Folic Acid 7.6 5.9 - 24.8 ng/mL BT MAIN-STATION 1 Specimen Blood Performing Organization Address [facility] Phone Number [facility] BT MAIN-STATION 1 * FERRITIN (06/15/2018 9:18 AM [employer]ERIFF[employer]ECTIVE) Ferritin 50.70 11.0 - 306.8 ng/mL BT MAIN-STATION 1 Specimen Blood Performing Organization Address [facility] Phone Number M[facility] BT MAIN-STATION 1 * VITAMIN B12 (06/15/2018 9:18 AM [employer]ER[employer]ECTIVE) Vitamin B12 212 211 - 911 pg/mL BT MAIN-STATION 1 Specimen Blood Performing Organization Address [facility] Phone Number [facility] BT MAIN-STATION 1 * LIVER PROFILE (06/15/2018 9:18 AM [employer]ERIFFS DETECTIVE) Protein, Total, 6.3 6.0 - 8.3 g/dL BT MAIN-STATION Serum 1 Albumin 3.9 3.7 - 5.3 g/dL BT MAIN-STATION 1 Bilirubin, 0.4 0.2 - 1.2 mg/dL BT MAIN-STATION Total 1 Alkaline 89 34 - 104 U/L BT MAIN-STATION Phosphatase, S 1 AST (SGOT) 22 13 - 39 U/L BT MAIN-STATION 1 ALT 25 7 - 52 U/L BT MAIN-STATION 1 D Bilirubin 0.1 0.0 - 0.2 mg/dL BT MAIN-STATION 1 Specimen Blood Performing Organization Address [facility] Phone Number [facility] BT MAIN-STATION 1 * LIPID PROFILE (06/15/2018 9:18 AM [employer]ER[employer]ECTIVE) Cholesterol 174 mg/dL BT MAIN-STATION Comment: 1 REFERENCE RANGE: Desirable: <200 mg/dL Borderline: 200-240 mg/dL High Risk: >240 mg/dL Triglyceride 89 <150 mg/dL BT MAIN-STATION Comment: 1 REFERENCE RANGE: Normal: <150 mg/dL Borderline High: 150-199 mg/dL High: 200-499 mg/dL Very High: >yj=968 mg/dL HDL 70 mg/dL BT MAIN-STATION Comment: 1 Increased CHD risk: <40 mg/dL Decreased CHD risk: >60 mg/dL LDL 86 mg/dL BT MAIN-STATION Comment: 1 REFERENCE RANGE: Optimal: <100 mg/dL Near Optimal: 100-129 mg/dL Borderline High: 130-159 mg/dL High: 160-189 mg/dL Very High: >uv=706 mg/dL Specimen Blood Performing Organization Address [facility] Phone Number [facility] BT MAIN-STATION 1 * IRON PROFILE (06/15/2018 9:18 AM [employer]IVE) Iron 54 50 - 212 ug/dL BT MAIN-STATION 1 TIBC 440 250 - 450 ug/dL BT MAIN-STATION 1 % Iron Sat 12 % BT MAIN-STATION 1 Specimen Blood Performing Organization Address [facility] Phone [facility] * CBC/DIFF (06/15/2018 9:18 AM [employer]ER[employer]ECTIVE) WBC 6.8 4.5 - 11.0 K/uL BT MAIN-STATION 2 RBC 4.11 (L) 4.20 - 5.40 M/uL BT MAIN-STATION 2 Hemoglobin 12.0 12.0 - 16.0 g/dL BT MAIN-STATION 2 Hematocrit 38.7 37.0 - 47.0 % BT MAIN-STATION 2 MCV 94 (H) 82 - 92 fL BT MAIN-STATION 2 MCH 29.2 27.0 - 32.0 pg BT MAIN-STATION 2 MCHC 31.0 (L) 32.0 - 36.0 g/dL BT MAIN-STATION 2 RDW 45.5 36.4 - 46.3 fL BT MAIN-STATION 2 Platelets 261 150 - 400 K/uL BT MAIN-STATION 2 Mean Platelet 11.3 9.4 - 12.4 fL BT MAIN-STATION Volume 2 Percent NRBC 0.0 BT MAIN-STATION 2 Absolute NRBC 0.00 BT MAIN-STATION 2 Neutrophils 50.7 34.0 - 70.0 % BT MAIN-STATION 2 Lymphs 35.0 20.0 - 50.0 % BT MAIN-STATION 2 Monocytes 9.7 5.0 - 12.0 % BT MAIN-STATION 2 Eos 3.4 0.7 - 5.0 % BT MAIN-STATION 2 Basos 0.6 0.1 - 1.2 % BT MAIN-STATION 2 Immature 0.6 (H) 0.0 - 0.5 BT MAIN-STATION Granulocytes 2 Neutrophils 3.43 1.56 - 6.13 K/uL BT MAIN-STATION (Absolute) 2 Lymphs 2.37 1.18 - 3.74 K/uL BT MAIN-STATION (Absolute) 2 Monocytes(Absol 0.66 (H) 0.24 - 0.36 K/uL BT MAIN-STATION [place]) 2 Eos (Absolute) 0.23 0.04 - 0.36 K/uL BT MAIN-STATION 2 Baso (Absolute) 0.04 0.01 - 0.08 K/uL BT MAIN-STATION 2 Immature Grans 0.04 (H) 0.00 - 0.03 K/uL BT MAIN-STATION (Abs) 2 Specimen Blood Performing Organization Address City/[facility]/Zipcode Phone Number [facility] BT MAIN-STATION 2 * BASIC METABOLIC PANEL (06/15/2018 9:18 AM [employer]ERIFF[employer] DETECTIVE) [facility] CO2 27 21 - 31 mmol/L BT MAIN-STATION 1 Chloride 107 98 - 107 mmol/L BT MAIN-STATION 1 Potassium 3.7 3.5 - 5.1 mmol/L BT MAIN-STATION 1 Sodium 143 136 - 145 mmol/L BT MAIN-STATION 1 Glucose 85 70 - 110 mg/dL BT MAIN-STATION 1 BUN 27 (H) 7 - 25 mg/dL BT MAIN-STATION 1 Creatinine 0.70 0.6 - 1.2 mg/dL BT MAIN-STATION 1 Anion Gap 9 BT MAIN-STATION 1 Calcium 9.2 8.6 - 10.3 mg/dL BT MAIN-STATION 1 GFR, Estimated >60 mL/min/1.73 m2 BT MAIN-STATION 1 eGFR If Africn >60 mL/min/1.73 m2 BT MAIN-STATION Am 1 Specimen Blood Performing Organization Address [facility] Cent[facility] Phone Number [facility] BT MAIN-STATION 1 * UA CHEMISTRIES (02/22/2018 12:20 PM [employer]ERIFF[employer] DETECTIVE) Color Yellow BT MAIN-STATION 1 Clarity Clear BT MAIN-STATION 1 Specific 1.025 1.001 - 1.035 BT MAIN-STATION [place] 1 pH 6.0 5 - 8 BT MAIN-STATION 1 Protein Negative NEG BT MAIN-STATION 1 Glucose Negative NEG BT MAIN-STATION 1 Ketones Negative NEG BT MAIN-STATION 1 Bilirubin Negative NEG BT MAIN-STATION 1 Nitrate Negative NEG BT MAIN-STATION 1 Urobilinogen,Se 0.2 0.2 - 1.0 EU/dL BT MAIN-STATION mi-Qn 1 Leukocyte Negative NEG BT MAIN-STATION 1 Occult Blood Negative NEG BT MAIN-STATION 1 Specimen Urine Performing Organization Address City/[facility] Phone Number [facility] BT MAIN-STATION 1 * URINE CULTURE (02/22/2018 12:19 PM SHERIFFS DETECTIVE) Spec Catheterized urine BT MICROBIOLOGY Description Order Comments None BT MICROBIOLOGY Culture No growth 2 days BT MICROBIOLOGY Report Status Final 02/25/2018 BT MICROBIOLOGY Specimen Urine catheter - Straight catheter Performing Organization Address [facility] Phone Number [facility] BT MICROBIOLOGY after 10/02/2017 Insurance Type Payer Benefit Subscriber ID Effective Phone Address Plan / Dates Group MEDICARE MEDICARE xxxxxxxxxxx 2016- [phone] Present [id number] [place] [address] Advance Directives Date Inactivated Comments Code Status Date Activated 10/19/2012 7:22 PM Full Code 10/18/2012 4:58 AM
--- OUTSIDE RECORDS SUMMARY | 2018-10-03 22:57 | XMS REPORT | Summary of Care ---
Author Organization Unknown Address Unknown Phone Unavailable Encounter HQ Encntr_jose luisalisha([facility]) [id number] Date(s): 05/01/14 - 05/01/14 [facility] Outpatient Imaging - [address] [address] [place] Discharge Disposition: Home Physician Attending: Aden Gorman MD Reason for Visit 714 - OTH INFLAMM MOISÉS Problem List No data available for this section Allergies, Adverse Reactions, Alerts Substance Reaction Severity Status Phenergan Active Medications No data available for this section Medications Administered During Your Visit No data available for this section Immunizations No data available for this section
--- OUTSIDE RECORDS SUMMARY | 2018-10-03 22:57 | XMS REPORT | Summary of Care ---
Author Organization Unknown Address Unknown Phone Unavailable Encounter HQ Connorr_bharath([facility]) [id number] Date(s): 05/04/14 - 05/04/14 [facility] Outpatient Imaging - [address] [address] [place] Discharge Disposition: Home Physician Attending: Aden Gorman MD Reason for Visit V82.81 - SCREEN - OSTEOP Problem List No data available for this section Allergies, Adverse Reactions, Alerts Substance Reaction Severity Status Phenergan Active Medications No data available for this section Medications Administered During Your Visit No data available for this section Immunizations No data available for this section
--- OUTSIDE RECORDS SUMMARY | 2018-10-03 22:57 | XMS REPORT | Summary of Care ---
Author Author [facility] Outpatient Imaging - [place] Organization [facility] Outpatient Imaging - [place] Address Unknown Phone Unavailable Encounter Connorr_bharath(FIN) [id number] Date(s): 03/01/15 - 03/01/15 [facility] Outpatient Imaging - [place] [address] [facility], [place] [address] [phone] Discharge Disposition: Home Attending Physician: Pedro Luis Orozco MD Vital Signs No data available for [...]
--- OUTSIDE RECORDS SUMMARY | 2018-10-03 22:57 | XMS REPORT | Summary of Care ---
Author Author [facility] Outpatient Imaging - [place] Organization [facility] Outpatient Imaging - [place] Address Unknown Phone Unavailable Encounter HQ Connorr_bharath(FIN) [id number] Date(s): 11/06/16 - 11/06/16 [facility] Outpatient Imaging - [place] [address] [phone] Discharge Disposition: Home or Self Care Attending Physician: Aden Gorman MD Vital Signs No data available for [...]
--- OUTSIDE RECORDS SUMMARY | 2018-10-03 22:57 | XMS REPORT ---
[facility] Address Unknown Phone Unavailable Care Team Providers Care Paper Machine Backtender Name Role Phone Yodit SHERMAN Unavailable Unavailable Payers Payer Name Policy Type Policy Number Effective Date Expiration Date Problems This patient has no known problems. Allergies, Adverse Reactions, Alerts Allergy Name Allergy Type Status Severity Reaction(s) Onset Date Inactive Date Treating Clinician Comments No Known Allergies DA Active U 2017-01-11 00:00:00 Medications This patient has no known medications. Encounters Start Date/Time End Date/Time Encounter Type Admission Type Attending Clinicians [facility] Emergency Department Facility Care Department Encounter ID 2018-09-01 11:14:06 2018-09-01 11:14:06 Outpatient [facility] [id number] 2018-07-25 00:00:00 2018-07-25 00:00:00 Outpatient [facility] [id number] 2018-06-15 09:26:15 2018-06-15 09:26:15 Outpatient [facility] [id number] 2018-06-14 11:09:21 2018-06-14 11:09:21 Outpatient [facility] [id number] 2018-05-02 08:13:31 2018-05-02 08:13:31 Outpatient [facility] [id number] 2018-03-03 00:00:00 2018-03-03 00:00:00 Outpatient [facility] [id number] 2018-02-22 10:47:14 2018-02-22 10:47:14 Outpatient [facility] [id number] 2018-02-07 10:33:20 2018-02-07 10:33:20 Outpatient [facility] [id number] 2017-12-27 00:00:00 2017-12-27 00:00:00 Outpatient [facility] [id number] 2017-11-15 10:44:12 2017-11-15 10:44:12 Outpatient [facility] [id number] 2017-11-08 00:00:00 2017-11-08 00:00:00 Outpatient [facility] [id number] 2017-10-05 09:16:05 2017-10-05 09:16:05 Outpatient [facility] [id number] 2017-10-04 10:26:49 2017-10-04 10:26:49 Outpatient [facility] [id number] 2017-09-06 09:25:39 2017-09-06 09:25:39 Outpatient [facility] [id number] 2017-08-23 00:00:00 2017-08-23 00:00:00 Outpatient [facility] [id number] 2017-08-16 08:06:59 2017-08-16 08:06:59 Outpatient [facility] [id number] 2017-08-05 11:06:10 2017-08-05 11:06:10 Outpatient [facility] [id number] 2017-07-29 00:00:00 2017-07-29 00:00:00 Outpatient [facility] [id number] 2017-07-22 10:55:48 2017-07-22 10:55:48 Outpatient [facility] [id number] 2017-07-22 09:38:28 2017-07-22 09:38:28 Outpatient [facility] [id number] 2017-07-22 00:00:00 2017-07-22 00:00:00 Outpatient [facility] [id number] 2017-07-16 07:47:32 2017-07-16 07:47:32 Outpatient [facility] [id number] 2017-07-16 00:00:00 2017-07-16 00:00:00 Outpatient [facility] [id number] 2017-07-14 00:00:00 2017-07-14 00:00:00 Outpatient [facility] [id number] 2017-07-08 00:00:00 2017-07-08 00:00:00 Outpatient [facility] [id number] 2017-07-02 00:00:00 2017-07-02 00:00:00 Outpatient [facility] [id number] 2017-06-24 00:00:00 2017-06-24 00:00:00 Outpatient [facility] [id number] 2017-06-18 00:00:00 2017-06-18 00:00:00 Outpatient [facility] [id number] 2017-06-18 00:00:00 2017-06-18 00:00:00 Outpatient [facility] [id number] 2017-06-17 00:00:00 2017-06-17 00:00:00 Outpatient [facility] [id number] 2017-06-14 00:00:00 2017-06-14 00:00:00 Outpatient [facility] [id number] 2017-06-11 00:00:00 2017-06-11 00:00:00 Outpatient [facility] [id number] 2017-06-10 00:00:00 2017-06-10 00:00:00 Outpatient [facility] [id number] 2017-05-31 08:07:55 2017-05-31 08:07:55 Outpatient [facility] [id number] 2017-05-11 00:00:00 2017-05-11 00:00:00 Outpatient [facility] [id number] 2017-04-28 11:40:12 2017-04-28 11:40:12 Outpatient [facility] [id number] 2017-04-28 00:00:00 2017-04-28 00:00:00 Outpatient [facility] [id number] 2017-04-26 00:00:00 2017-04-26 00:00:00 Outpatient [facility] [id number] 2017-03-09 00:00:00 2017-03-09 00:00:00 Outpatient [facility] [id number] 2017-03-02 10:54:40 2017-03-02 10:54:40 Outpatient [facility] [id number] 2017-02-12 13:07:11 2017-02-12 13:07:11 Outpatient [facility] [id number] 2017-02-08 00:00:00 2017-02-08 00:00:00 Outpatient [facility] [id number] 2017-02-01 00:00:00 2017-02-01 00:00:00 Outpatient [facility] [id number] 2017-01-18 13:58:12 2017-01-18 13:58:12 Outpatient [facility] [id number] 2017-01-12 15:35:25 2017-01-12 15:35:25 Outpatient [facility] [id number] 2017-01-01 13:59:49 2017-01-01 13:59:49 Outpatient [facility] [id number] 2016-12-31 00:00:00 2016-12-31 00:00:00 Outpatient [facility] [id number] 2016-12-24 00:00:00 2016-12-24 00:00:00 Outpatient [facility] [id number] 2016-12-17 00:00:00 2016-12-17 00:00:00 Outpatient [facility] [id number] 2016-12-17 00:00:00 2016-12-17 00:00:00 Outpatient [facility] [id number] 2016-12-08 00:00:00 2016-12-08 00:00:00 Outpatient [facility] [id number] 2016-11-27 09:39:36 2016-11-27 09:39:36 Outpatient [facility] [id number] 2016-11-25 11:05:31 2016-11-25 11:05:31 Outpatient [facility] [id number] 2016-11-24 10:23:52 2016-11-24 10:23:52 Outpatient [facility] [id number] 2016-11-16 08:08:21 2016-11-16 08:08:21 Outpatient [facility] [id number] 2016-11-09 14:52:45 2016-11-09 14:52:45 Outpatient [facility] [id number] 2016-10-29 09:13:19 2016-10-29 09:13:19 Outpatient [facility] [id number] 2016-10-08 08:46:33 2016-10-08 08:46:33 Outpatient [facility] [id number] 2016-08-27 00:00:00 2016-08-27 00:00:00 Outpatient [facility] [id number] 2015-12-17 10:47:28 2015-12-17 10:47:28 Outpatient [facility] [id number] Results Test Description Test Time Test Comments Text Results Atomic Results Result Comments CT ABDOMEN/PELVIS [place] [address] Patient Name: DULCE GUILLEN MR #: [id number] : 1955 Age/Sex: 61/F Req #: [id number] Adm Physician: Ordered by: MATTHEW SHERMAN MD Report #: [id number] Location: ER Room/Bed: Procedure: [id number] CT/CT ABDOMEN/PELVIS WO Exam Date: 01/13/17 Exam Time: 0100 REPORT STATUS: Signed EXAM: CT Abdomen and Pelvis WITHOUT contrast INDICATION: Right lower quadrant pain, stones. COMPARISON: 11/21/2009 TECHNIQUE: Abdomen and pelvis were scanned utilizing a multidetector helical scanner from the lung base to the pubic symphysis without administration of IV contrast. Absence of intravenous contrast decreases sensitivity for detection of focal lesions and vascular pathology. Coronal and sagittal reformations were obtained. Stone protocol is performed. IV CONTRAST: None. ORAL CONTRAST: Water RADIATION DOSE: Total DLP: 687.8 mGy*cm Estimated effective dose: (DLP x 0.015 x size factor) mSv COMPLICATIONS: None FINDINGS: LINES and TUBES: None. LOWER THORAX: Unremarkable HEPATOBILIARY: No focal hepatic lesions. No bili john ductal dilation. GALLBLADDER: No radio-opaque stones or sludge. No wall thickening. SPLEEN: No splenomegaly. PANCREAS: No focal masses or ductal dilatation. ADRENALS: No adrenal nodules KIDNEYS/URETERS: No hydronephrosis. No cystic or solid mass lesions. No stones. GI TRACT: No abnormal distention, wall thickening, or evidence of bowel obstruction. There are post surgical changes of appendectomy. PELVIC ORGANS/BLADDER: Unremarkable. LYMPH NODES: No lymphadenopathy. VESSELS: Unremarkable. PERITONEUM / RETROPERITONEUM: No free air or fluid. BONES: There are degenerative changes in the lumbar spine. SOFT TISSUES: Unremarkable. IMPRESSION: 1. No acute intra- abdominal or pelvic abnormality. 2. Previously described punctate nephrolithiasis in the right kidney are not conspicuous on today's exam. Signed by: Dr. Loi Mccormack M.D. on 01/13/2017 1:39 AM Dictated By: LOI RAMSEY MD [id number] Transcribed By: OMARI on 01/13/17 0139 COPY TO: MATTHEW SHERMAN MD
--- OUTSIDE RECORDS SUMMARY | 2018-10-03 22:57 | XMS REPORT | Summary of Care ---
Author Author [facility] [place] [facility] [place] Address Unknown Phone Unavailable Encounter HQ Connorr_bharath([place]) [id number] Date(s): 11/30/14 - 11/30/14 [facility] [place] [address] [place] [address]- [facility] [phone] Discharge Disposition: Home Attending Physician: Aden Gorman MD Vital Signs [...]
--- OUTSIDE RECORDS SUMMARY | 2018-10-03 22:57 | XMS REPORT | Summary of Care ---
Author Author [facility] Address Unknown Phone Unavailable Encounter HQ Josentr_bharath([facility]) [id number] Date(s): 07/30/15 - 08/28/15 [facility] Discharge Disposition: Home Attending Physician: Jean Nielsen DO Vital Signs No data available for this [...]
--- OUTSIDE RECORDS SUMMARY | 2018-10-03 22:57 | XMS REPORT | Summary of Care ---
Author Author [facility] Address Unknown Phone Unavailable Encounter HQ Encntr_bharath([facility]) [id number] Date(s): 06/25/15 - 07/24/15 [facility] Discharge Disposition: Home Attending Physician: Jean [...]
--- OUTSIDE RECORDS SUMMARY | 2018-10-03 22:57 | XMS REPORT | Summary of Care ---
Author Author [facility] Organization [facility] Address Unknown Phone Unavailable Encounter ONIEL Cash([facility]) [id number] Date(s): 06/16/18 - 06/16/18 [facility] [address] [place] [address]- Discharge Disposition: Home or Self Care Attending Physician: Davonte Sarah MD Referring Physician: Davonte Sarah MD Vital Signs Most recent to 1 oldest [Reference Range]: Height 154.94 cm (06/15/18 4:04 PM) Temperature Oral 98.3 DegF [96.4-99.1 DegF] (06/16/18 9:55 AM) Blood Pressure 113/73 mmHg [90-140/60-90 mmHg] (06/16/18 9:55 AM) Respiratory Rate 18 BRMIN [14-20 BRMIN] (06/16/18 9:55 AM) Peripheral Pulse 73 bpm Rate [60-100 bpm] (06/16/18 9:55 AM) Weight 90.909 kg (06/15/18 4:04 PM) Body Mass Index 37.87 m2 (06/15/18 4:04 PM) Problem List Condition Effective Dates Status Health Status Informant Anxiety(Confirmed) Resolved Arthritis(Confirmed) Resolved Dysphasia(Confirmed) Active GERD Resolved (gastroesophageal reflux disease)(Confirmed) GERD - Active Gastro-esophageal reflux disease(Confirmed) Elevated Resolved triglycerides with high cholesterol(Confirme d) Urinary tract Resolved infection, recurrent(Confirmed) Allergies, Adverse Reactions, Alerts Substance Reaction Severity Status Phenergan Active Medications buPROPion 150 mg/24 hours (XL) oral tablet, extended release 150 mg=1 tab, PO, Q24H, # 30 tab, 0 Refill(s) Start Date: 06/15/18 Stop Date: 06/16/18 Status: Discontinued buPROPion 300 mg/24 hours (XL) oral tablet, extended release 300 mg=1 tab, PO, Q24H, 0 Refill(s) Start Date: 06/16/18 Status: Ordered CeleBREX 200 mg oral capsule 200 mg=1 cap, PO, Daily, # 30 cap, 0 Refill(s) Start Date: 06/16/18 Status: Ordered fenofibrate 145 mg oral tablet 145 mg=1 tab, PO, Daily, # 30 tab, 0 Refill(s) Start Date: 06/15/18 Status: Ordered LORazepam 0.5 mg oral tablet 0.25 mg=0.5 tab, PO, BID, PRN Anxiety, # 15 tab, 0 Refill(s) Start Date: 06/15/18 Stop Date: 07/15/18 Status: Ordered Lyrica 300 mg oral capsule 300 mg=1 cap, PO, Daily, 0 Refill(s) Start Date: 06/15/18 Status: Ordered Myrbetriq 50 mg oral tablet, extended release 50 mg=1 tab, PO, Daily, # 30 tab, 0 Refill(s) Start Date: 06/15/18 Status: Ordered omeprazole 40 mg oral delayed release capsule 40 mg=1 cap, PO, Daily, # 30 cap, 0 Refill(s) Start Date: 06/15/18 Status: Ordered trazodone 100 mg oral tablet 100 mg=1 tab, PO, PRN, 0 Refill(s) Start Date: 06/15/18 Status: Ordered Results No data available for this section Immunizations No data available for this section Procedures Procedure Date Related Diagnosis Body Site Status Esophagogastroduodenoscopy1 05/11/18 Completed Esophagogastroduodenoscopy2 01/06/17 Completed Esophagogastroduodenoscopy3 07/23/15 Completed Colonoscopy 01/24/14 Completed Appendectomy 2012 Completed Hernia repair 2009 Completed 1gastritis 2gastritis 3gastritis Social History Social History Type Response Substance Abuse Use: None. Alcohol Past Smoking Status Never smoker; Lives with someone who smokes; Cigarette Smoking Last 365 Days No; Reg Smoking Cessation Counseling No entered on: 06/16/18 Assessment and Plan No data available for this section
--- OUTSIDE RECORDS SUMMARY | 2018-10-03 22:57 | XMS REPORT | Summary of Care ---
Author Author [facility] Address Unknown Phone Unavailable Encounter HQ Encntr_bharath([facility]) [id number] Date(s): 02/20/15 - 03/21/15 On license of [facility] Discharge Disposition: Home Attending Physician: Pedro Luis [...]
--- OUTSIDE RECORDS SUMMARY | 2018-10-03 22:57 | XMS REPORT | Summary of Care ---
Author Author [facility] [place] Organization [facility] [place] Address Unknown Phone Unavailable Encounter HQ Shailesh([place]) [id number] Date(s): 02/28/18 - 02/28/18 [facility] [place] [address] [place] [phone] Attending Physician: Pedro Luis Orozco MD Referring Physician: Pedro Luis Orozco MD Vital Signs No data available for this section Problem List Condition Effective Dates Status Health [...]
== END | disposition left against medical advice (07) ==
LOC: ER 22:53
DX: R52 Pain, unspecified (principal)

== ENCOUNTER 2020-07-30 18:44 | Emergency (ER) | payer MEDICARE, OTHER ==
[~2020-07-30] VITALS: Ht 154.9 cm; Wt 80.3 kg
[~2020-07-30 18:44] MED LIST changes: +ATIVAN0.5 MG PO; +EFFEXOR XR75 MG PO; +FOLIC ACID1 MG PO; +PYRIDIUM100 MG PO; +RESTORIL15 MG PO; +TYLENOL WITH C1 EACH PO
== END 2020-07-30 22:25 | disposition left against medical advice (07) ==
LOC: ER 20:09
DX: R25.2 Cramp and spasm (principal)
CPT/HCPCS: 36415; 99281

== ENCOUNTER → 2022-08-05 | Outpatient (CLI) | payer MEDICARE | LOC: RAD 10:19 | PROVIDERS: ATTEND Nurse Practitioner Gerontology | DX: R05.9 Cough, unspecified (principal) | CPT/HCPCS: 71046 ==